=== PATIENT | male | born 1955 | race Caucasian/White ===

== ENCOUNTER 2018-11-19 20:35 | Emergency (ER) | payer OTHER ==
[2018-11-19 20:53] VITALS: BP 127/82; PULSE 85; TEMP 97.3; BMI 31.3
--- NOTE | 2018-11-19 20:59 | PDOC ---
History of Present Illness - History of Present Illness Initial Comments: 11/19/18 20:58 The patient is a 59 year old male with a significant past medical history of CAD (VT 1yr ago w/3 stents placed on Brilinta and baby aspirin), HTN, hyperthyroidism, hypercholesterolemia, diabetes, anxiety, and depression who presents to the ED from home c/o substernal CP x1hr. Pt was aggravated/pissed off today. 1hr ago he was standing and angry when he had gradual onset pressure/ heaviness in the middle of his chest, nonradiating, improving with time. Pt states it's the exact same sx as his previous VT except he had SOB last time. Denies SOB, N/V, diaphoresis, PEREZ, dizziness, F/C, abdominal pain, weakness. Endorses intermittent b/l hand numbness/tingling x3mo, none now. Denies travel, recent surgeries, immobilization. <Miryam Ashby - Last Filed: 11/19/18 21:15> <Berenice Zuniga I - Last Filed: 11/19/18 22:15> - General Chief Complaint: Pain Stated Complaint: SUBSTERNAL CHEST PAIN Time Seen by Provider: 11/19/18 20:52 Past History - Past Medical History COPD: No Diabetes: Yes (TYPE II) HTN: Yes Hypercholesterolemia: Yes Thyroid Disease: Yes - Surgical History Cholecystectomy: Yes - Suicide/Smoking/Psychosocial Hx Smoking History: Former smoker Have you smoked in the past 12 months: No Number of Cigarettes Smoked Daily: 0 If you are a former smoker, when did you quit?: 11/2017 Information on smoking cessation initiated: No 'Breaking Loose' booklet given: 09/04/13 Hx Alcohol Use: No Drug/Substance Use Hx: No Substance Use Type: Marijuana <Miryam Ashby - Last Filed: 11/19/18 21:15> <Berenice Zuniga I - Last Filed: 11/19/18 22:15> - Past Medical History Allergies/Adverse Reactions: Allergies Allergy/AdvReac Type Severity Reaction Status Date / Time No Known Allergies Allergy Verified 11/19/18 20:37 Home Medications: Ambulatory Orders Aspirin [ASA -] 81 mg PO DAILY 11/19/18 Empagliflozin [Jardiance] 10 mg PO DAILY 11/19/18 Fenofibrate Nanocrystallized [Fenofibrate] 160 mg PO DAILY 11/19/18 Levothyroxine [Synthroid -] 75 mcg PO DAILY 11/19/18 Losartan Potassium 25 mg PO DAILY 11/19/18 Metformin HCl [Glucophage] 1,000 mg PO BID 11/19/18 Rosuvastatin Calcium [Crestor] 40 mg PO DAILY 11/19/18 Ticagrelor [Brilinta] 90 mg PO BID 11/19/18 Review of Systems - Review of Systems Comments:: 11/19/18 21:23 Constitutional: Negative for chills, fever, fatigue. HENT: Negative for sore throat, rhinorrhea, congestion. Eyes: Negative for visual disturbance. Respiratory: Negative for shortness of breath, cough, and wheezing. Cardiovascular: Positive for chest pain. Negative for palpitations, and leg swelling. Gastrointestinal: Negative for abdominal pain, blood in stool, constipation, diarrhea, nausea, and vomiting. Genitourinary: Negative for dysuria, flank pain, and hematuria. Musculoskeletal: Positive for back pain (chronic). Negative for myalgias and neck pain. Skin: Negative for rash. Neurological: Positive for b/l hand numbness (intermittent, chronic). Negative for light-headedness, dizziness, syncope, weakness, and headaches. Psychiatric/Behavioral: Negative for behavioral problems and confusion. <Miryam Ashby - Last Filed: 11/19/18 21:15> *Physical Exam - Vital Signs Last Vital Signs Temp Pulse Resp BP Pulse Ox 97.3 F L 85 15 127/82 100 11/19/18 20:38 11/19/18 20:38 11/19/18 20:38 11/19/18 20:38 11/19/18 20:38 - Physical Exam Comments: 11/19/18 21:22 Gen: Alert, NAD, slightly anxious-appearing. HEENT: PERRL, EOMI, MMM, NCAT. No conjunctival pallor. Sclera are non-icteric. Oropharynx is clear. CV: Regular rate and rhythm. No murmurs, rubs, or gallops. PULM: No resp distress. CTAB, no wheezes, rales, or rhonchi. ABD: soft, NT/ND, no rebound tenderness or guarding, no CVA tenderness. BACK: No TTP of c/t/l-spine. No step-offs or deformities. MSK: No bony deformities. 2+ pulses in all extremities. NEURO: AAOx3. PERRL. No gross CN deficits. Strength and sensation grossly intact throughout. EXTREMITIES: No cyanosis. No clubbing. No edema. No calf tenderness. PSYCH: Normal mood and thought pattern. SKIN: Warm and dry. Normal capillary refill. No rashes. No jaundice. <Miryam Ashby - Last Filed: 11/19/18 21:15> - Vital Signs Last Vital Signs Temp Pulse Resp BP Pulse Ox 97.3 F L 85 15 127/82 100 11/19/18 20:38 11/19/18 20:38 11/19/18 20:38 11/19/18 20:38 11/19/18 20:38 <Berenice Zuniga I - Last Filed: 11/19/18 22:15> Heart Score/ECG Review - ECG Impressions Comment:: 11/19/18 21:34 NSR, 80bpm, no STEs, +TWIs in III, aVR, V2. No prior EKGs to compare. <Miryam Ashby - Last Filed: 11/19/18 21:15> ED Treatment Course - LABORATORY CBC & Chemistry Diagram: 11/19/18 20:55 11/19/18 20:55 <Miryam Ashby - Last Filed: 11/19/18 21:15> - LABORATORY CBC & Chemistry Diagram: 11/19/18 20:55 11/19/18 20:55 - ADDITIONAL ORDERS Additional order review: Laboratory Results 11/19/18 11/19/18 11/19/18 21:25 20:55 20:55 PT with INR 14.6 H INR 1.31 H Sodium 140 Potassium 3.9 Chloride 106 Carbon Dioxide 25 Anion Gap 9 BUN 20.0 H Creatinine 1.1 Est GFR (CKD-EPI)AfAm 82.37 Est GFR (CKD-EPI)NonAf 71.07 Random Glucose 118 H Calcium 9.5 Total Bilirubin 1.3 H AST 24 ALT 23 Alkaline Phosphatase 36 L Creatine Kinase 95 Troponin I < 0.03 Total Protein 7.2 Albumin 4.3 11/19/18 20:55 RBC 5.07 MCV 88.3 MCHC 33.9 RDW 13.4 MPV 9.3 Neutrophils % 65.3 Lymphocytes % 22.4 D Monocytes % 9.8 Eosinophils % 2.0 Basophils % 0.5 - RADIOLOGY Radiology Studies Ordered: Category Date Time Status CHEST X-RAY PORTABLE* [RAD] Stat Radiology 11/19/18 20:52 Taken <Berenice Zuniga I - Last Filed: 11/19/18 22:15> Medical Decision Making - Medical Decision Making 11/19/18 21:18 The patient is a 59 year old male with a significant past medical history of CAD (VT 1yr ago w/3 stents placed on Brilinta and baby aspirin), HTN, hyperthyroidism, hypercholesterolemia, diabetes, anxiety, and depression who presents to the ED from home with substernal, nonradiating, chest pressure/ heaviness x1hr similar to his previous VT. Hemodynamically stable, no SOB, benign physical exam. High concern for ACS/VT due to significant RFs and similarity of sx to previous VT - get labs, EKG, and admit for ACS r/o. Low concern for PNA or pulmonary etiology of CP due to lack of SOB and lungs CTAB - obtain CXR to r/o. Hemodynamic stability, lack of back pain, and presentation not concerning for dissection. Presentation, lack of RFs, and Wells score 0 not concerning for PE - no further testing indicated. -EKG -Labs: CBC, CMP, Coags, Cardiac profile -CXR -Dispo: admit pending w/u 11/19/18 21:29 EKG reviewed. TWIs in III, aVR, V2 - inferior infarct, age undetermined, possibly due to prior VT. No prior EKGs to compare. 11/19/18 21:30 Labs reviewed. No concerning findings. CXR reviewed: per my read, no acute findings <Miryam Ashby - Last Filed: 11/19/18 21:15> *DC/Admit/Observation/Transfer <Miryam Ashby - Last Filed: 11/19/18 21:15> <Berenice Zuniga I - Last Filed: 11/19/18 22:15> Diagnosis at time of Disposition: Chest pain Qualifiers: Chest pain type: unspecified Qualified Code(s): R07.9 - Chest pain, unspecified - Discharge Dispostion Disposition: AGAINST MEDICAL ADVICE Condition at time of disposition: Stable - Patient Instructions Additional Instructions: Your leaving AGAINST MEDICAL ADVICE. By leaving AGAINST MEDICAL ADVICE U except responsibility for anything that could happen or any adverse outcome including but not limited to a heart attack, passing out, permanent cardiac/heart damage, permanent brain damage and . If at any time E you change your mind please go to the nearest emergency department or return to this emergency department. Return to the emergency department immediately with ANY new, persistent or worsening symptoms. Continue any medications as previously prescribed by your physician. You should follow up with your primary doctor as soon as possible regarding today's emergency department visit. . Please make sure your doctor reviews the results of your emergency evaluation. Thank you for coming to the Emergency Department today for your care. It was a pleasure to see you today. Please note that your evaluation is INCOMPLETE until you follow-up with your doctor.
[2018-11-19 21:20] LABS: BASO % 0.5 % (0-2.0); HEMATOCRIT 44.8 % (35.4-49); HEMOGLOBIN 15.2 GM/dl (11.7-16.9); LYMPH % 22.4 % (8-40); MCHC 33.9 g/dl (32.0-35.9); MEAN CELL VOLUME 88.3 fl (80-96); MEAN PLT VOLUME 9.3 fl (7.5-11.1); MONO % 9.8 % (3.8-10.2); NEUT % 65.3 % (42.8-82.8); PLATELET COUNT 205 K/MM3 (134-434); RBC 5.07 M/mm3 (4.00-5.60); RDW 13.4 % (11.9-15.9); WHITE BLOOD COUNT 7.5 K/mm3 (4.0-10.8)
[2018-11-19 21:33] LABS: ALBUMIN 4.3 g/dl (3.4-5.0); BILIRUBIN,TOTAL 1.3 mg/dl (0.2-1); CALCIUM 9.5 mg/dl (8.5-10); CREATININE 1.1 mg/dl (0.55-1.3); POTASSIUM 3.9 mmol/L (3.5-5.1); TOT PROT 7.2 g/dl (6.4-8.2)
--- NOTE | 2018-11-19 21:49 | PDOC ---
Documentation entered by Marilee Gil SCRIBE, acting as scribe for Berenice Zuniga MD. Berenice Zuniga MD: This documentation has been prepared by the Louise adan Xhesika, SCRIBE, under my direction and personally reviewed by me in its entirety. I confirm that the documentation accurately reflects all work, treatment, procedures, and medical decision making performed by me. Attending Attestation - Resident Resident Name: Miryam Ashby - ED Attending Attestation I have performed the following: I have examined & evaluated the patient, The case was reviewed & discussed with the resident, I agree w/resident's findings & plan, Exceptions are as noted - HPI HPI: 11/19/18 21:54 The patient is a 62 year old male, with a significant PMH of CAD (MO 1yr ago w/ 3 stents placed, on Brilinta and baby aspirin), HTN, hyperthyroidism, hypercholesterolemia, diabetes, anxiety, and depression who presents to the emergency department with 1 hour of chest pain. The patient describes the pain as substernal, heavy pressure, non radiating pain, progressively getting better. The patient notes he was aggravated and angry today at the sudden onset of his symptoms. The patient notes these were the same symptoms he endorsed with his previous heart attack, however, he denies experiencing SOB this time. PAST SURGICAL HISTORY: no significant history FAMILY HISTORY: no pertinent history SOCIAL HISTORY: Pt lives with family and is employed. MEDICATIONS: reviewed ALLERGIES: As per nursing notes - Physicial Exam PE: 11/19/18 21:54 General: Well-nourished well-developed individual, no acute distress HEENT: Throat: Normal, tonsils normal, no erythema or exudate Neck: Supple, no meningeal signs, no lymphadenopathy Eyes::Pupils equal reactive and round, extraocular motion intact Chest: Nontender to palpation Cardiac: S1-S2 normal, regular rate and rhythm, no murmurs rubs or gallops Respiratory: Lungs clear to auscultation bilateral Abdomen: Soft, nondistended, normal bowel sounds, nontender to palpation diffusely Extremities: Warm, dry, no cyanosis, clubbing, or edema Skin: No rashes Neuro: Alert and oriented x3, nonfocal exam, grossly intact, normal gait Psych: Normal mood and affect - Medical Decision Making 11/19/18 22:18 This is a 62-year-old male with multiple cardiac risk factors including an MO approximately year ago who came in with chest pain similar to his chest pain with his MO. Patient was seen by the resident and a workup was initiated including labs EKG and chest x-ray EKG was negative for any acute ST-T wave changes but did indicate an old inferior wall MO. Patient's cardiac enzymes were normal and his troponin was not measurable. Patient's heart score was elevated and the he was advised that he needed an admission for chest pain rule out ACS. Patient refused admission. Risk of not being admitted to was explained to patient including heart attack, + out, permanent cardiac damage, permanent disability and patient understood his risks and left after signing out against AMA.
[2018-11-19 22:09] LABS: INR 1.31 (0.82-1.09); PROTHROMBIN TIME (PATIENT) 14.6 SEC (10.2-13.0)
--- NOTE | 2018-11-20 09:31 | EKG ---
Test Reason : Blood Pressure : / mmHG Vent. Rate : 080 BPM Atrial Rate : 080 BPM P-R Int : 150 ms QRS Dur : 088 ms QT Int : 378 ms P-R-T Axes : 018 -28 014 degrees QTc Int : 435 ms NORMAL SINUS RHYTHM POSSIBLE LEFT ATRIAL ENLARGEMENT INFERIOR INFARCT , AGE UNDETERMINED ABNORMAL ECG WHEN COMPARED WITH ECG OF 28-JAN-2008 22:32, QRS AXIS SHIFTED LEFT MINIMAL CRITERIA FOR ANTERIOR INFARCT ARE NO LONGER PRESENT INFERIOR INFARCT IS NOW PRESENT Confirmed by Clint Martins MD ([id number]) on 11/20/2018 9:31:26 AM Referred By: Confirmed By:Clint Martins MD
== END 2018-11-19 22:20 | disposition left against medical advice (07) ==
LOC: FER 20:35
DX: R07.9 Chest pain, unspecified (principal); I25.2 Old myocardial infarction; I25.10 Atherosclerotic heart disease of native coronary artery without angina pectoris; I10 Essential (primary) hypertension; E07.9 Disorder of thyroid, unspecified; E78.00 Pure hypercholesterolemia, unspecified; E11.9 Type 2 diabetes mellitus without complications; F41.8 Other specified anxiety disorders
CPT/HCPCS: 36415; 71045-TC-FY; 80053; 82550; 84484; 85025; 85610; 85730; 93005; 99282-25

== ENCOUNTER 2019-02-09 10:53 | Emergency (ER) | payer OTHER ==
[2019-02-09] MEDS ORDERED: ASPIRIN 81 MG CHEWABLE TABLETS PO ONE (11:07)
[2019-02-09] MEDS ORDERED: ASPIRIN 81 MG CHEWABLE TABLETS ONE (11:10)
[2019-02-09 11:15] VITALS: TEMP 98; BMI 32.5
[2019-02-09 11:33] LABS: BASO % 0.7 % (0-2.0); EOS % 5.2 % (0-4.5); HEMATOCRIT 43.2 % (35.4-49); HEMOGLOBIN 14.3 GM/dl (11.7-16.9); LYMPH % 22.1 % (8-40); MCH 29.4 pg (25.7-33.7); MCHC 33.2 g/dl (32.0-35.9); MEAN CELL VOLUME 88.4 fl (80-96); MEAN PLT VOLUME 8.8 fl (7.5-11.1); MONO % 10.2 % (3.8-10.2); NEUT % 61.8 % (42.8-82.8); PLATELET COUNT 158 K/MM3 (134-434); RBC 4.88 M/mm3 (4.00-5.60); WHITE BLOOD COUNT 5.6 K/mm3 (4.0-10.8)
[2019-02-09 11:45] LABS: INR 1.17 (0.82-1.09); PROTHROMBIN TIME (PATIENT) 13.1 SEC (10.2-13.0)
[2019-02-09 11:46] LABS: ALBUMIN 4.1 g/dl (3.4-5.0); BILIRUBIN,TOTAL 0.3 mg/dl (0.2-1); CALCIUM 9.2 mg/dl (8.5-10); POTASSIUM 3.7 mmol/L (3.5-5.1); TOT PROT 6.5 g/dl (6.4-8.2)
--- NOTE | 2019-02-09 12:17 | PDOC ---
History of Present Illness - General Chief Complaint: Chest Pain Stated Complaint: CHEST PAIN Time Seen by Provider: 02/09/19 10:55 History Source: Patient, Primary Care Provider Exam Limitations: No Limitations - History of Present Illness Initial Comments: 02/09/19 12:12 CHIEF COMPLAINT: Diffuse substernal chest pain for 2 hours this morning HISTORY OF PRESENT ILLNESS: 63-year-old man with a history of coronary artery disease, stents x3, myocardial infarction, ejection fraction of 40%, hypertension, hyperlipidemia, and diabetes mellitus. Patient was feeling well until this morning when he became aggravated over a situation. He developed substernal chest pain diffusely throughout the chest. He states it felt like a pressure or a discomfort, more than like a pain. The symptoms continued for about 2 hours and have now resolved. Given his upset, he took his Xanax 0.5 mg which seemed to help. He also took his usual aspirin this morning. There was no shortness of breath, no nausea, no vomiting, and no diaphoresis. There were no palpitations and no syncope or lightheadedness. Currently he is feeling well. REVIEW OF SYSTEMS: GENERAL/CONSTITUTIONAL: No fever or chills. No weakness. No weight change. HEAD, EYES, EARS, NOSE AND THROAT: No change in vision. No ear pain or discharge. No sore throat. CARDIOVASCULAR: Positive chest pain. No shortness of breath. RESPIRATORY: No cough, wheezing, or hemoptysis. GASTROINTESTINAL: No nausea, vomiting, diarrhea or constipation. No rectal bleeding. GENITOURINARY: No dysuria, frequency, or change in urination. MUSCULOSKELETAL: No joint or muscle swelling or pain. No neck or back pain. SKIN AND BREASTS: No rash or easy bruising. NEUROLOGIC: No headache, vertigo, loss of consciousness, or loss of sensation. PSYCHIATRIC: No depression. Positive history of anxiety. ENDOCRINE: No increased thirst. No abnormal weight change. HEMATOLOGIC/LYMPHATIC: No anemia, easy bleeding, or history of blood clots. ALLERGIC/IMMUNOLOGIC: No hives or skin allergy. No latex allergy. Past History - Past Medical History Allergies/Adverse Reactions: Allergies Allergy/AdvReac Type Severity Reaction Status Date / Time No Known Allergies Allergy Verified 02/09/19 11:00 Home Medications: Ambulatory Orders Aspirin [ASA -] 81 mg PO DAILY 11/19/18 Fenofibrate Nanocrystallized [Fenofibrate] 160 mg PO DAILY 11/19/18 Levothyroxine [Synthroid -] 75 mcg PO DAILY 11/19/18 Losartan Potassium 25 mg PO DAILY 11/19/18 Metformin HCl [Glucophage] 500 mg PO BID 11/19/18 Rosuvastatin Calcium [Crestor] 20 mg PO DAILY 11/19/18 Ticagrelor [Brilinta] 90 mg PO BID 11/19/18 Alprazolam [Xanax] 0.5 mg PO PRN PRN 02/09/19 Duloxetine HCl [Cymbalta] 60 mg PO DAILY 02/09/19 Hydrocodone/Acetaminophen [Hydrocodon-Acetaminoph 7.5-325] 1 each PO PRN PRN traZODone HCL [Trazodone HCl] 50 mg PO DAILY 02/09/19 Cardiac Disorders: Yes (Coronary stents x3) Hx Myocardial Infarction: Yes (Ejection fraction 40% on last echo) COPD: No Diabetes: Yes (TYPE II) HTN: Yes Hypercholesterolemia: Yes Psychiatric Problems: Yes (anxiety,depression) Thyroid Disease: Yes - Surgical History Cardiac Surgery: Yes (stents x 3 in 2018) Cholecystectomy: Yes - Psycho Social/Smoking Cessation Hx Smoking History: Former smoker Have you smoked in the past 12 months: No Number of Cigarettes Smoked Daily: 0 If you are a former smoker, when did you quit?: 11/2017 Information on smoking cessation initiated: No 'Breaking Loose' booklet given: 09/04/13 Hx Alcohol Use: No Drug/Substance Use Hx: No Substance Use Type: Marijuana *Physical Exam - Vital Signs Last Vital Signs Temp Pulse Resp BP Pulse Ox 98 F 71 17 138/84 98 02/09/19 10:54 02/09/19 11:56 02/09/19 11:56 02/09/19 11:56 02/09/19 11:56 - Physical Exam Comments: 02/09/19 12:15 GENERAL: The patient is awake, alert, and fully oriented, in no acute distress. He appears comfortable and appears well. HEAD: Normal with no signs of trauma. EYES: Pupils equal, round and reactive to light, extraocular movements intact, sclera anicteric, conjunctiva clear. ENT: Ears normal, nares patent, oropharynx clear without exudates. Moist mucous membranes. NECK: Normal range of motion, supple without lymphadenopathy, JVD, or masses. LUNGS: Breath sounds equal, clear to auscultation bilaterally. No wheezes, and no crackles. HEART: Regular rate and rhythm, normal S1 and S2 without murmur, rub or gallop. ABDOMEN: Soft, nontender, normoactive bowel sounds. No guarding, no rebound. No masses. EXTREMITIES: Normal range of motion, no edema. No clubbing or cyanosis. No cords, erythema, or tenderness. NEUROLOGICAL: Cranial nerves II through XII grossly intact. Normal speech, normal gait. Motor strength normal. Sensation normal. PSYCH: Normal mood, normal affect. SKIN: Warm, Dry, normal turgor, no rashes or lesions noted. Heart Score/ECG Review - History History: Moderately suspicious - Electrocardiogram EKG: Normal - Age Age: 45-65 - Risk Factors Risk Factors Heart Score: Yes Hx Hypercholesterolemia, Yes Hx Hypertension, Yes Hx Diabetes Based on the list above the patient has:: >/=3 risk factors or Hx atherosclerotic disease - Troponin Troponin: </= normal limit - Score Heart Score - Total: 4 - ECG Impressions Comment:: 02/09/19 12:16 Twelve-lead EKG shows sinus rhythm at a rate of 75 bpm with trigeminy. The axis is normal. The intervals are normal. There are Q waves in the inferior leads, unchanged from prior EKG of November 19, 2018. There are no acute ST elevations or depressions. Impression: Sinus rhythm with trigeminy, old inferior wall ME unchanged from prior EKG. 02/09/19 13:46 Repeat EKG shows normal sinus rhythm at a rate of 65. The previously seen immature ventricular contractions are no longer present. The axis is normal. The intervals are normal. There are old inferior Q waves. There are no acute ST elevations or depressions. T waves are normal. Impression: Normal sinus rhythm at 65 bpm. Old inferior infarct, unchanged from prior EKGs. Previously seen premature ventricular contractions are no longer present. No acute changes. ED Treatment Course - LABORATORY CBC & Chemistry Diagram: 02/09/19 11:15 02/09/19 11:15 - ADDITIONAL ORDERS Additional order review: Laboratory Results 02/09/19 02/09/19 02/09/19 11:15 11:15 11:15 PT with INR 13.1 H INR 1.17 PTT (Actin FS) Sodium 130 L Potassium 3.7 Chloride 105 Carbon Dioxide 25 Anion Gap 0 L BUN 22.0 H Creatinine 1.0 Est GFR (CKD-EPI)AfAm 91.78 Est GFR (CKD-EPI)NonAf 79.19 Random Glucose 162 H Calcium 9.2 Total Bilirubin 0.3 AST 16 ALT 14 Alkaline Phosphatase 53 Creatine Kinase 70 Troponin I < 0.03 Total Protein 6.5 Albumin 4.1 02/09/19 11:15 PT with INR INR PTT (Actin FS) 31.2 Sodium Potassium Chloride Carbon Dioxide Anion Gap BUN Creatinine Est GFR (CKD-EPI)AfAm Est GFR (CKD-EPI)NonAf Random Glucose Calcium Total Bilirubin AST ALT Alkaline Phosphatase Creatine Kinase Troponin I Total Protein Albumin 02/09/19 11:15 RBC 4.88 MCV 88.4 MCHC 33.2 RDW 12.0 D MPV 8.8 Neutrophils % 61.8 Lymphocytes % 22.1 Monocytes % 10.2 Eosinophils % 5.2 H D Basophils % 0.7 - RADIOLOGY Radiology Studies Ordered: Category Date Time Status CHEST X-RAY PORTABLE* [RAD] Stat Radiology 02/09/19 11:07 Completed - Medications Given in the ED: ED Medications Discontinued Medications Generic Name Dose Route Start Last Admin Trade Name Freq PRN Reason Stop Dose Admin Aspirin 324 mg 02/09/19 11:07 02/09/19 11:10 Asa - PO 02/09/19 11:08 324 mg ONCE ONE Administration Medical Decision Making - Medical Decision Making 02/09/19 14:06 63-year-old man with a history of coronary disease, stents, prior ME, EF of 40% . Patient came in with chest pain after an upsetting episode this morning, lasting for 2 hours. Twelve-lead EKG initially showed trigeminy, but no acute ischemic changes. There was an old inferior wall ME which has been seen on prior EKGs. The patient's chest pain resolved upon arrival to the emergency department. Work-up with chest x-ray, labs, EKG all negative. Initial troponin negative. Repeat troponin also negative. Patient with a heart risk score in the moderate range, discussed with patient and his primary physician, Dr. Prem Johnson. Shared decision making process followed. Patient is refusing admission. Dr. Woods has arranged follow-up with cardiology in 48 hours. Patient states he is feeling well and he understands the risks and benefits of admission versus close outpatient follow-up. He has decided to follow-up as an outpatient and promises to return immediately if he develops any further symptoms. Impression: Chest pain, possibly cardiac in etiology. Patient advised of options based on shared decision making and has decided not to be admitted. Plan: Patient to continue aspirin and other medications, has appointment to follow-up in 48 hours with cardiology. Patient to return to the ED immediately for any recurrence of symptoms. Vital Signs (72 hours) 02/09/19 02/09/19 02/09/19 10:54 11:56 12:11 Temperature 98 F Pulse Rate 74 Pulse Rate [ 71 64 Apical] Respiratory 19 17 16 Rate Blood Pressure 132/82 Blood Pressure 138/84 118/80 [Arm] O2 Sat by Pulse 100 98 100 Oximetry (%) 02/09/19 13:43 Temperature Pulse Rate Pulse Rate [ 70 Apical] Respiratory 17 Rate Blood Pressure Blood Pressure 117/70 [Arm] O2 Sat by Pulse 97 Oximetry (%) Laboratory Results - last 24 hr 02/09/19 02/09/19 02/09/19 11:15 11:15 11:15 WBC RBC Hgb Hct MCV MCH MCHC RDW Plt Count MPV Absolute Neuts (auto) Neutrophils % Lymphocytes % Monocytes % Eosinophils % Basophils % PT with INR INR PTT (Actin FS) 31.2 Sodium 130 L Potassium 3.7 Chloride 105 Carbon Dioxide 25 Anion Gap 0 L BUN 22.0 H Creatinine 1.0 Est GFR (CKD-EPI)AfAm 91.78 Est GFR (CKD-EPI)NonAf 79.19 Random Glucose 162 H Calcium 9.2 Total Bilirubin 0.3 AST 16 ALT 14 Alkaline Phosphatase 53 Creatine Kinase 70 Troponin I < 0.03 Total Protein 6.5 Albumin 4.1 02/09/19 02/09/19 02/09/19 11:15 11:15 13:20 WBC 5.6 RBC 4.88 Hgb 14.3 Hct 43.2 MCV 88.4 MCH 29.4 MCHC 33.2 RDW 12.0 D Plt Count 158 D MPV 8.8 Absolute Neuts (auto) 3.5 Neutrophils % 61.8 Lymphocytes % 22.1 Monocytes % 10.2 Eosinophils % 5.2 H D Basophils % 0.7 PT with INR 13.1 H INR 1.17 PTT (Actin FS) Sodium Potassium Chloride Carbon Dioxide Anion Gap BUN Creatinine Est GFR (CKD-EPI)AfAm Est GFR (CKD-EPI)NonAf Random Glucose Calcium Total Bilirubin AST ALT Alkaline Phosphatase Creatine Kinase Troponin I < 0.03 Total Protein Albumin Discharge - Discharge Information Problems reviewed: Yes Clinical Impression/Diagnosis: Chest pain Qualifiers: Chest pain type: unspecified Qualified Code(s): R07.9 - Chest pain, unspecified Condition: Guarded Disposition: HOME - Admission No - Follow up/Referral Referrals: Prem Johnson MD [Primary Care Provider] - - Patient Discharge Instructions Patient Printed Discharge Instructions: DI for Chest Pain Additional Instructions: Today you were evaluated for chest pain. The EKGs do not show a heart attack. The heart enzymes were normal x2. The exact cause of the chest pain remains uncertain and may still be from the heart. 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 You are also advised to return immediately to the emergency department for any recurrence of chest pain or other symptoms such as shortness of breath, weakness, sweating, palpitations, or other serious symptoms. Continue to take your medications as prescribed, including aspirin. - Post Discharge Activity
[2019-02-09 13:44] VITALS: BP 117/70; PULSE 70
--- NOTE | 2019-02-09 20:11 | EKG ---
Test Reason : Blood Pressure : / mmHG Vent. Rate : 065 BPM Atrial Rate : 065 BPM P-R Int : 158 ms QRS Dur : 090 ms QT Int : 412 ms P-R-T Axes : 039 -13 040 degrees QTc Int : 428 ms NORMAL SINUS RHYTHM INFERIOR INFARCT (CITED ON OR BEFORE 19-NOV-2018) ABNORMAL ECG WHEN COMPARED WITH ECG OF 09-FEB-2019 11:03, PREMATURE VENTRICULAR COMPLEXES ARE NO LONGER PRESENT Confirmed by MD ALBIN, ADY ([id number]) on 02/09/2019 8:11:36 PM Referred By: ANN ADRIAN Confirmed By:ADY TALAMANTES MD
--- NOTE | 2019-02-09 20:12 | EKG ---
Test Reason : Blood Pressure : / mmHG Vent. Rate : 075 BPM Atrial Rate : 075 BPM P-R Int : 156 ms QRS Dur : 086 ms QT Int : 390 ms P-R-T Axes : 043 -25 047 degrees QTc Int : 435 ms SINUS RHYTHM WITH FREQUENT PREMATURE VENTRICULAR COMPLEXES INFERIOR INFARCT (CITED ON OR BEFORE 19-NOV-2018) ABNORMAL ECG WHEN COMPARED WITH ECG OF 19-NOV-2018 20:40, PREMATURE VENTRICULAR COMPLEXES ARE NOW PRESENT Confirmed by MD ALBIN, ADY ([id number]) on 02/09/2019 8:11:54 PM Referred By: ANN ADRIAN Confirmed By:ADY TALAMANTES MD
== END 2019-02-09 14:35 | disposition home or self-care (01) ==
LOC: FER 10:53
DX: R07.9 Chest pain, unspecified (principal); I25.10 Atherosclerotic heart disease of native coronary artery without angina pectoris; Z95.5 Presence of coronary angioplasty implant and graft; I25.2 Old myocardial infarction
CPT/HCPCS: 36415; 71045-TC-FY; 80053; 82550; 84484; 85025; 85610; 85730; 93005; 99285-25

== ENCOUNTER 2019-07-14 16:52 | Emergency (ER) | payer OTHER ==
[2019-07-14 17:36] VITALS: TEMP 97.4; BMI 32.5
--- NOTE | 2019-07-14 17:40 | PDOC ---
Documentation entered by Katy Segovia SCRIBE, acting as scribe for Jamaal Mustafa MD. Jamaal Mustafa MD: This documentation has been prepared by the Luca adan Maria, SCRIBE, under my direction and personally reviewed by me in its entirety. I confirm that the documentation accurately reflects all work, treatment, procedures, and medical decision making performed by me. History of Present Illness - General Chief Complaint: Chest Pain Stated Complaint: CHEST PAIN Time Seen by Provider: 07/14/19 16:57 History Source: Patient Exam Limitations: No Limitations - History of Present Illness Initial Comments: 07/14/19 17:30 The patient is a 63 year old male with a significant past medical history of CAD ([place] 1yr ago w/4 stents placed on Brilinta and baby aspirin), HTN, hyperthyroidism, hypercholesterolemia, diabetes, anxiety,diabetes mellitus and depression who presents to the emergency room with midsternal chest pain. As per patient, he was well this morning and became aggravated through a conversation. Patient describes the pain as a fluttering sensation that lasted 3-4 minutes, he reports having a similar sensation before having his 4th stent placed.Patient reports tingling in his arm, but states it is consistent with his diabetes. He also reports taking his baby aspirin this morning and he currently presents feeling well. He denies any recent fevers, chills, headache or dizziness. He denies any recent nausea, vomiting, diarrhea or constipation. He denies any recent palpitations or shortness of breath. He denies any recent dysuria, frequency, urgency or hematuria. Denies any acute onset numbness or tingling. Patient states he was seen by his drug enforcement agent 2 months ago, with no significant findings, and has an upcoming appointment next month. Cardiologists: Dr.Michael Sousa PCP: Prem Johnson Past History - Past Medical History Allergies/Adverse Reactions: Allergies Allergy/AdvReac Type Severity Reaction Status Date / Time No Known Allergies Allergy Verified 07/14/19 17:01 Home Medications: Ambulatory Orders Aspirin [ASA -] 81 mg PO DAILY 11/19/18 Fenofibrate Nanocrystallized [Fenofibrate] 160 mg PO DAILY 11/19/18 Levothyroxine [Synthroid -] 75 mcg PO DAILY 11/19/18 Losartan Potassium 25 mg PO DAILY 11/19/18 Metformin HCl [Glucophage] 500 mg PO BID 11/19/18 Rosuvastatin Calcium [Crestor] 20 mg PO DAILY 11/19/18 Ticagrelor [Brilinta] 90 mg PO BID 11/19/18 Alprazolam [Xanax] 0.5 mg PO PRN PRN 02/09/19 Duloxetine HCl [Cymbalta] 60 mg PO DAILY 02/09/19 Hydrocodone/Acetaminophen [Hydrocodon-Acetaminoph 7.5-325] 1 each PO PRN PRN 02/09/19 traZODone HCL [Trazodone HCl] 50 mg PO HS 02/09/19 Cardiac Disorders: Yes (Coronary stents x3) COPD: No Diabetes: Yes HTN: Yes Hypercholesterolemia: Yes Psychiatric Problems: Yes (anxiety,depression) Thyroid Disease: Yes - Surgical History Cardiac Surgery: Yes (stents x 3 in 2018) Cholecystectomy: Yes - Psycho Social/Smoking Cessation Hx Smoking History: Former smoker Have you smoked in the past 12 months: No Number of Cigarettes Smoked Daily: 0 If you are a former smoker, when did you quit?: 11/2017 'Breaking Loose' booklet given: 09/04/13 Hx Alcohol Use: No Drug/Substance Use Hx: No Substance Use Type: Marijuana Review of Systems - Review of Systems Able to Perform ROS?: Yes Comments:: 07/14/19 17:32 Constitutional - Pt denies Fever, Chills, weakness, HEENT: denies vision changes, sore throat Respiratory: Denies cough, sob, hemoptysis Cardiac:+Chest pain. Denies palpitations, light headedness, leg swelling Abd/GI: denies abd pain, nausea, vomiting, blood per rectum, melena, diarrhea : denies dysuria, frequency, discharge Musculskelatal - denies back pain, joint swelling skin - denies bruising, erythema, rash neurological: denies headache, numbness, focal weakness, tingling, ataxia, weakness hematologic: denies anemia, easy bruising, easy bleeding *Physical Exam - Vital Signs Last Vital Signs Temp Pulse Resp BP Pulse Ox 97.4 F L 96 H 18 137/86 95 07/14/19 16:55 07/14/19 17:41 07/14/19 16:55 07/14/19 16:55 07/14/19 17:41 - Physical Exam 07/14/19 17:32 GENERAL: The patient is awake, alert, and fully oriented, Nontoxic - in no acute distress. LUNGS: Breath sounds equal, clear to auscultation bilaterally. No wheezes, no crackles, no rales. HEART: Regular rate and rhythm, normal S1 and S2 without murmur, rub or gallop. ABDOMEN: Soft, nontender, normoactive bowel sounds. No guarding, no rebound. No masses. EXTREMITIES: Normal range of motion, no edema. No clubbing or cyanosis. No cords, erythema, or tenderness. NEUROLOGICAL: No facial asymmetry, Normal speech, normal gait. PSYCH: Normal mood, normal affect. SKIN: Warm, Dry, normal turgor, no rashes or lesions noted. Heart Score/ECG Review - ECG Impressions Comment:: 07/14/19 18:49 Twelve-lead EKG was performed and reviewed by me. There is normal sinus rhythm with a Rate of 103 Left axis deviation Q waves in the inferior leads, unchanged from prior EKG Abnormal R wave progression ED Treatment Course - LABORATORY CBC & Chemistry Diagram: 07/14/19 17:30 07/14/19 17:30 - ADDITIONAL ORDERS Additional order review: Laboratory Results 07/14/19 07/14/19 07/14/19 17:30 17:30 17:30 PT with INR 13.2 H INR 1.18 Sodium 138 Potassium 3.7 Chloride 101 Carbon Dioxide 24 Anion Gap 13 BUN 13.0 Creatinine 1.0 Est GFR (CKD-EPI)AfAm 91.78 Est GFR (CKD-EPI)NonAf 79.19 Random Glucose 156 H Calcium 9.3 Total Bilirubin 0.4 AST 20 ALT 14 Alkaline Phosphatase 43 L Creatine Kinase 50 Troponin I < 0.03 Total Protein 7.2 Albumin 4.2 07/14/19 17:30 RBC 5.70 H MCV 87.9 MCHC 32.2 RDW 12.9 MPV 9.3 Neutrophils % 64.1 Lymphocytes % 20.3 Monocytes % 9.2 Eosinophils % 5.7 H Basophils % 0.7 - RADIOLOGY Radiology Studies Ordered: Category Date Time Status CHEST PA & LAT [RAD] Stat Radiology 07/14/19 17:03 Completed Medical Decision Making - Medical Decision Making 07/14/19 17:18 63y M hx of CAD (sp 4 stents), presents with brief episode of nonradiating 'fluttering' discomfort in his chest lasting several minutse after having a heated discussion without asosicated sob, diaphoresis, palpitations, n/v, focal numbness/tingling/weakness. pt currently cp free. on exam pt in no distress with urnemarkable exam ddx - possible cp of cardiac etiology, inconsistent with other catstrophic causes of cp including pe/dissection will obtain trop, ekg, cxr will reasses pt took asa this morning 07/14/19 18:32 pt remains cp free and asymptomatic pts cxr, trop and labs reviewed. trop neg x 1 I had an in-depth discussion with the patient, recommended overnight observation for further evaluation and re-stratification of his chest pain, However the patient states that he prefers to go home And cannot stay overnight. He agrees to stay for a repeat troponin, We discussed the limitations of repeat troponin, but pt states he prefers to do this, and if it is elevated he will stay, but if negative, would follow up with dr. Sousa tomorrow. I believe that the patient understands the risks of his decision. We will continue to monitor the patient for the next hour until we repeat his blood work. Discharge - Discharge Information Problems reviewed: Yes Clinical Impression/Diagnosis: Chest pain Qualifiers: Chest pain type: unspecified Qualified Code(s): R07.9 - Chest pain, unspecified - Admission No - Follow up/Referral Referrals: Prem Johnson MD [Primary Care Provider] - Salvatore Sousa [Non Staff, Medical] - - Patient Discharge Instructions Patient Printed Discharge Instructions: DI for Chest Pain Additional Instructions: Return to the emergency department immediately with ANY new, persistent or worsening symptoms including recurrent chest pain, nausea, vomiting, sweating, difficulty breathing or any other concerns. You MUST call and follow up with your Physician'S Aide tomorrow for further evaluation of your symptoms. Results were discussed with you. Please make sure your doctor reviews the results of your emergency evaluation. Your Emergency De partment visit is not complete without a follow up with your doctor. Print Language: NAURUAN - Post Discharge Activity
[2019-07-14 17:57] LABS: BASO % 0.7 % (0-2.0); EOS % 5.7 % (0-4.5); HEMATOCRIT 50.1 % (35.4-49); HEMOGLOBIN 16.1 GM/dl (11.7-16.9); LYMPH % 20.3 % (8-40); MCH 28.3 pg (25.7-33.7); MCHC 32.2 g/dl (32.0-35.9); MEAN CELL VOLUME 87.9 fl (80-96); MEAN PLT VOLUME 9.3 fl (7.5-11.1); MONO % 9.2 % (3.8-10.2); NEUT % 64.1 % (42.8-82.8); PLATELET COUNT 216 K/MM3 (134-434); RDW 12.9 % (11.9-15.9); WHITE BLOOD COUNT 7.7 K/mm3 (4.0-10.8)
[2019-07-14 18:05] LABS: ALBUMIN 4.2 g/dl (3.4-5.0); BILIRUBIN,TOTAL 0.4 mg/dl (0.2-1); CALCIUM 9.3 mg/dl (8.5-10); POTASSIUM 3.7 mmol/L (3.5-5.1); TOT PROT 7.2 g/dl (6.4-8.2)
[2019-07-14 18:15] LABS: INR 1.18 (0.82-1.09); PROTHROMBIN TIME (PATIENT) 13.2 SEC (10.2-13.0)
[2019-07-14 19:35] VITALS: BP 110/75; PULSE 86
--- NOTE | 2019-07-14 20:07 | PDOC ---
*Physical Exam - Vital Signs Last Vital Signs Temp Pulse Resp BP Pulse Ox 97.4 F L 86 16 110/75 99 07/14/19 16:55 07/14/19 19:34 07/14/19 19:34 07/14/19 19:34 07/14/19 19:34 ED Treatment Course - LABORATORY CBC & Chemistry Diagram: 07/14/19 17:30 07/14/19 17:30 - ADDITIONAL ORDERS Additional order review: Laboratory Results 07/14/19 07/14/19 07/14/19 19:30 19:30 17:30 PT with INR INR Sodium Potassium Chloride Carbon Dioxide Anion Gap BUN Creatinine Est GFR (CKD-EPI)AfAm Est GFR (CKD-EPI)NonAf Random Glucose Calcium Total Bilirubin AST ALT Alkaline Phosphatase Creatine Kinase 50 Troponin I < 0.03 < 0.03 Total Protein Albumin 07/14/19 07/14/19 17:30 17:30 PT with INR 13.2 H INR 1.18 Sodium 138 Potassium 3.7 Chloride 101 Carbon Dioxide 24 Anion Gap 13 BUN 13.0 Creatinine 1.0 Est GFR (CKD-EPI)AfAm 91.78 Est GFR (CKD-EPI)NonAf 79.19 Random Glucose 156 H Calcium 9.3 Total Bilirubin 0.4 AST 20 ALT 14 Alkaline Phosphatase 43 L Creatine Kinase 50 Troponin I Total Protein 7.2 Albumin 4.2 07/14/19 17:30 RBC 5.70 H MCV 87.9 MCHC 32.2 RDW 12.9 MPV 9.3 Neutrophils % 64.1 Lymphocytes % 20.3 Monocytes % 9.2 Eosinophils % 5.7 H Basophils % 0.7 Discharge - Discharge Information Problems reviewed: Yes Clinical Impression/Diagnosis: Chest pain Qualifiers: Chest pain type: unspecified Qualified Code(s): R07.9 - Chest pain, unspecified Condition: Stable Disposition: HOME - Follow up/Referral Referrals: Salvatore Sousa [Non Staff, Medical] - Prem Johnson MD [Primary Care Provider] - - Patient Discharge Instructions Patient Printed Discharge Instructions: DI for Chest Pain Additional Instructions: Return to the emergency department immediately with ANY new, persistent or worsening symptoms including recurrent chest pain, nausea, vomiting, sweating, difficulty breathing or any other concerns. You MUST call and follow up with your Labor Delivery Specialist tomorrow for further evaluation of your symptoms. Results were discussed with you. Please make sure your doctor reviews the results of your emergency evaluation. Your Emergency Department visit is not complete without a follow up with your doctor. Print Language: FILIPINO - Post Discharge Activity
--- NOTE | 2019-07-15 10:27 | EKG ---
Test Reason : Blood Pressure : / mmHG Vent. Rate : 103 BPM Atrial Rate : 103 BPM P-R Int : 160 ms QRS Dur : 090 ms QT Int : 354 ms P-R-T Axes : 025 -35 025 degrees QTc Int : 463 ms SINUS TACHYCARDIA LEFT AXIS DEVIATION INFERIOR INFARCT (CITED ON OR BEFORE 19-NOV-2018) POOR R WAVE PROGRESSION ABNORMAL ECG WHEN COMPARED WITH ECG OF 09-FEB-2019 13:38, VENT. RATE HAS INCREASED BY 38 BPM Confirmed by Danielle Brock ([id number]) on 07/15/2019 10:26:45 AM Referred By: TRISTEN Confirmed By:Danielle Brock
== END 2019-07-14 20:18 | disposition home or self-care (01) ==
LOC: FER 16:52
DX: R07.9 Chest pain, unspecified (principal); I25.10 Atherosclerotic heart disease of native coronary artery without angina pectoris; Z95.5 Presence of coronary angioplasty implant and graft; I10 Essential (primary) hypertension; E07.9 Disorder of thyroid, unspecified; E11.9 Type 2 diabetes mellitus without complications; F41.8 Other specified anxiety disorders
CPT/HCPCS: 36415; 71046-TC-FY; 80053; 82550; 84484; 85025; 85610; 93005; 99285-25

== ENCOUNTER 2019-11-21 19:06 | Inpatient (IN) | payer OTHER ==
[2019-11-21 19:15] VITALS: BMI 32.6
--- NOTE | 2019-11-21 19:41 | PDOC ---
History of Present Illness - General Chief Complaint: Injury Stated Complaint: FALL/SENT BY PCP Time Seen by Provider: 11/21/19 19:37 - History of Present Illness Initial Comments: The pt reports 2 falls out of bed this past week. The endorses a posterior/R sided PEREZ that has been intermittent, throbbing, non-radiating, and improves with Tylenol since the time of his fall. Pt was seen by PMD, had outpt CT and was found to have small lacunar infarct. Pt was sent in for further evaluation. He denies vision changes, painful eye movements, changes in sensation/strength, chest pain, SOB, abdominal pain, N/V/C/D, dysuria, hematuria Denies history of stroke or [place] Pt reports being compliant with medications. 11/21/19 21:29 NIH Stroke Scale - Last Known Well Date/Time & Onset Date Last Known Well: 11/20/19 Time Last Known Well: 03:00 - Initial Evaluation Level of consciousness: Alert Ask patient the month and their age: Answers both correctly Ask patient to open & close eyes; make fist and let go: Obeys both correctly Best gaze (horizontal eye movement): Normal Visual field testing: No visual field loss Facial paresis (Show teeth/raise eyebrows/close eyes tight): Normal symmetrical movement Motor Function: Left Arm: Normal Motor Function: Right Arm: Normal (extends arm 90 (or 45) degrees for 10 seconds without drift Motor Function: Left Leg: Normal (extends leg 30 degrees for 5 seconds without drift) Motor Function: Right Leg: Normal (extends leg 30 degrees for 5 seconds without drift) Limb Ataxia: No ataxia Sensory(Use pinprick test arms,legs,trunk,face/side to side): Normal Best language (Describe picture, name items, read sentences): No Aphasia Dysarthria (read several words): Normal articulation Extinction and Inattention: No abnormality - Total Score NIH Stroke Scale Score: 0 Past History - Medical History Allergies/Adverse Reactions: Allergies Allergy/AdvReac Type Severity Reaction Status Date / Time No Known Allergies Allergy Verified 07/14/19 17:01 Home Medications: Ambulatory Orders Aspirin [ASA -] 81 mg PO DAILY 11/19/18 Fenofibrate Nanocrystallized [Fenofibrate] 160 mg PO DAILY 11/19/18 Levothyroxine [Synthroid -] 75 mcg PO DAILY 11/19/18 Losartan Potassium 25 mg PO DAILY 11/19/18 Metformin HCl [Glucophage] 500 mg PO BID 11/19/18 Rosuvastatin Calcium [Crestor] 20 mg PO DAILY 11/19/18 Ticagrelor [Brilinta] 90 mg PO BID 11/19/18 Alprazolam [Xanax] 0.5 mg PO PRN PRN 02/09/19 Duloxetine HCl [Cymbalta] 60 mg PO DAILY 02/09/19 Hydrocodone/Acetaminophen [Hydrocodon-Acetaminoph 7.5-325] 1 each PO PRN PRN 02/09/19 traZODone HCL [Trazodone HCl] 50 mg PO HS 02/09/19 Cardiac Disorders: Yes (Coronary stents x3) COPD: No Diabetes: Yes HTN: Yes Hypercholesterolemia: Yes Psychiatric Problems: Yes (anxiety,depression) Thyroid Disease: Yes - Surgical History Cardiac Surgery: Yes (stents x 3 in 2018) Cholecystectomy: Yes - Psycho-Social/Smoking History Smoking History: Never smoked Have you smoked in the past 12 months: No Number of Cigarettes Smoked Daily: 0 If you are a former smoker, when did you quit?: 11/2017 'Breaking Loose' booklet given: 09/04/13 - Substance Abuse Hx (Audit-C & DAST Scrn) How often the patient has a drink containing alcohol: Never Score: In Men: 4 or > Positive; In Women: 3 or > Positive: 0 Screen Result (Pos requires Nsg. Audit-10AR): Negative In the last yr the pt used illegal drug/Rx for NonMed reason: No Score: Yes response is considered Positive: 0 Screen Result (Positive result requires Nsg. DAST-10): Negative Review of Systems - Review of Systems Able to Perform ROS?: Yes Comments:: GENERAL/CONSTITUTIONAL: No fever or chills. No weakness HEAD, EYES, EARS, NOSE AND THROAT: No change in vision. No change in hearing. No sore throat CARDIOVASCULAR: No chest pain or shortness of breath RESPIRATORY: Denies cough, hemoptysis GASTROINTESTINAL: No nausea, vomiting, diarrhea or constipation GENITOURINARY: No dysuria, frequency, or change in urination MUSCULOSKELETAL: No joint or muscle swelling or pain. No neck or back pain SKIN: No rash NEUROLOGIC: No vertigo, loss of consciousness, or change in strength/sensation ENDOCRINE: No increased thirst. No abnormal weight change HEMATOLOGIC/LYMPHATIC: No anemia, easy bleeding, or history of blood clots ALLERGIC/IMMUNOLOGIC: No hives or skin allergy 11/21/19 19:40 Is the patient limited Greenlandic proficient: No *Physical Exam - Vital Signs Last Vital Signs Temp Pulse Resp BP Pulse Ox 97.6 F 100 H 19 113/71 97 11/21/19 19:12 11/21/19 19:12 11/21/19 19:12 11/21/19 19:12 11/21/19 19:12 - Physical Exam GENERAL: Awake, alert, and oriented to person/place/time, in no acute distress HEAD: R infra-orbital ecchymosis w/o underlying bony crepitus EYES: PERRLA, EOMI, sclera anicteric, conjunctiva clear ENT: Hearing grossly normal, nares patent, oropharynx clear without exudates. No uvular deviation. Moist mucosa LUNGS: No distress, speaks in full sentences, clear to auscultation bilaterally HEART: Regular rate and rhythm, normal S1 and S2, no murmurs appreciated, peripheral pulses normal and equal bilaterally ABDOMEN: Soft, nontender, normoactive bowel sounds. No guarding, no rebound. No masses EXTREMITIES: Normal inspection, Normal range of motion, no edema. No clubbing or cyanosis NEUROLOGICAL: Cranial nerves II through XII grossly intact. Normal speech, normal gait, no focal sensorimotor deficits SKIN: Warm, Dry 11/21/19 19:41 ED Treatment Course - LABORATORY CBC & Chemistry Diagram: 11/21/19 20:30 11/21/19 20:30 Medical Decision Making - Medical Decision Making The pt is a 63M w/ a history of HTN who presents from his MD's office for eval uation of a lacunar infarct that was found on outpt CT. Pt denies any changes in vision, strength, or sensation ED Course CMP, CBC, Trop, Lipids ECG CT head ASA and Atorvastatin given ECG w/ sinus rhythm; HR 94; QTc 467; R axis deviation; several PVCs noted, no acute ischemic changes; abn ECG No leukocytosis No anemia Lytes overall unremarkable LFTs overall unremarkable UA w/o evidence of UTI Case discussed w/ Dr. Petersen, will admit to stroke floor Pt signed out to Dr. Bird 07/30/20 21:29 Discharge - Discharge Information Problems reviewed: Yes Clinical Impression/Diagnosis: Stroke Qualifiers: CVA mechanism: unspecified Qualified Code(s): I63.9 - Cerebral infarction, unspecified Condition: Good - Admission Yes - Follow up/Referral - Patient Discharge Instructions - Post Discharge Activity
--- NOTE | 2019-11-21 20:03 | PDOC ---
Attending Attestation - Resident Resident Name: KishaBakari gifford - ED Attending Attestation I have performed the following: I have examined & evaluated the patient, The case was reviewed & discussed with the resident, I agree w/resident's findings & plan, Exceptions are as noted - HPI HPI: 11/22/19 01:13 See resident HPI - Physicial Exam PE: 11/22/19 01:13 Agree with documented exam - Medical Decision Making 11/22/19 01:13 Sent in after OP CT showed acute lacunar infarct f/u labs, repeat CT Neuro consult/eval dispo per neuro admit to stroke Discharge - Discharge Information Problems reviewed: Yes Clinical Impression/Diagnosis: Stroke Qualifiers: CVA mechanism: unspecified Qualified Code(s): I63.9 - Cerebral infarction, unspecified Condition: Good Disposition: HOME - Follow up/Referral - Patient Discharge Instructions - Post Discharge Activity
[2019-11-21] MEDS: SODIUM CHLORIDE 1,000 ML IV SCH (20:32)
[2019-11-21 20:54] LABS: BASO % 0.3 % (0-2.0); EOS % 3.9 % (0-4.5); HEMATOCRIT 43.2 % (35.4-49); HEMOGLOBIN 14.5 GM/dL (11.7-16.9); LYMPH % 15.6 % (8-40); MCH 29.3 pg (25.7-33.7); MCHC 33.5 g/dl (32.0-35.9); MEAN CELL VOLUME 87.6 fl (80-96); MEAN PLT VOLUME 9.3 fl (7.5-11.1); MONO % 8.6 % (3.8-10.2); NEUT % 71.6 % (42.8-82.8); PLATELET COUNT 158 K/MM3 (134-434); RBC 4.93 M/mm3 (4.00-5.60); RDW 14.4 % (11.9-15.9); WHITE BLOOD COUNT 9.6 K/mm3 (4.0-10.0)
[2019-11-21 21:03] LABS: INR 1.16 (0.83-1.09); PROTHROMBIN TIME (PATIENT) 13.7 SEC (9.7-13.0)
[2019-11-21 21:05] LABS: ACTIVATED PTT 33.8 SECONDS (25.2-36.5)
[2019-11-21] MEDS ORDERED: ATORVASTATIN CA 80 MG TABLET (FP) PO ONE (21:19)
[2019-11-21] MEDS ORDERED: ASPIRIN 81 MG CHEWABLE TABLETS PO ONE (21:20)
[2019-11-21] MEDS ORDERED: ACETAMINOPHEN 325 MG TABLET (FP) PO ONE (21:27)
[2019-11-21] MEDS ORDERED: ATORVASTATIN CA 80 MG TABLET (FP) ONE (21:37)
[2019-11-21] MEDS ORDERED: ACETAMINOPHEN 325 MG TABLET (FP) ONE (21:37)
[2019-11-21] MEDS ORDERED: ASPIRIN 81 MG CHEWABLE TABLETS ONE (21:37)
[2019-11-21 21:59] LABS: ALBUMIN 3.8 g/dl (3.4-5.0); ALK PHOS 53 U/L (45-117); ANION GAP 9 MMOL/L (8-16); BILIRUBIN,TOTAL 0.4 mg/dL (0.2-1); BLOOD UREA NITROGEN 18.2 mg/dL (7-18); CALCIUM 8.9 mg/dL (8.5-10.1); CHLORIDE 108 mmol/L (98-107); CHOLESTEROL 107 mg/dL (50-200); CO2 24 mmol/L (21-32); CREATININE 1.2 mg/dL (0.55-1.3); GLUCOSE,RANDOM 185 mg/dL (74-106); HDL CHOLESTEROL 40 mg/dL (40-60); LDL CHOLESTEROL (ONLY SJRH) 45 mg/dL (5-100); POTASSIUM 4.1 mmol/L (3.5-5.1); SGOT/AST 10 U/L (15-37); SGPT/ALT 12 U/L (13-61); SODIUM 141 mmol/L (136-145); TRIGLYCERIDES 226 mg/dL (0-150)
--- NOTE | 2019-11-21 23:46 | CON.NEURO ---
Consult Consult Specialty:: [facility] Reason for Consultation:: abnormal head Ct - History of Present Illness History of Present Illness: 63-year-old right-handed man with history of high blood pressure and difficulty with balance was afraid to the emergency room due to abnormal CAT scan of the head Apparetntly patient was having diff walking for few days Went to his pCP who did Head Ct which showed lacunar stroke No results availabe - Alcohol/Substance Use Hx Alcohol Use: No - Smoking History Smoking history: Never smoked Have you smoked in the past 12 months: No Aproximately how many cigarettes per day: 0 If you are a former smoker, when did you quit?: 11/2017 Home Medications - Allergies Allergies/Adverse Reactions: Allergies Allergy/AdvReac Type Severity Reaction Status Date / Time No Known Allergies Allergy Verified 07/14/19 17:01 - Home Medications Home Medications: Ambulatory Orders Aspirin [ASA -] 81 mg PO DAILY 11/19/18 Fenofibrate Nanocrystallized [Fenofibrate] 160 mg PO DAILY 11/19/18 Levothyroxine [Synthroid -] 75 mcg PO DAILY 11/19/18 Losartan Potassium 25 mg PO DAILY 11/19/18 Metformin HCl [Glucophage] 500 mg PO BID 11/19/18 Rosuvastatin Calcium [Crestor] 20 mg PO DAILY 11/19/18 Ticagrelor [Brilinta] 90 mg PO BID 11/19/18 Alprazolam [Xanax] 0.5 mg PO PRN PRN 02/09/19 Duloxetine HCl [Cymbalta] 60 mg PO DAILY 02/09/19 Hydrocodone/Acetaminophen [Hydrocodon-Acetaminoph 7.5-325] 1 each PO PRN PRN 02/09/19 traZODone HCL [Trazodone HCl] 50 mg PO HS 02/09/19 Physical Exam-Neuro Vital Signs: Vital Signs Temperature 98.1 F 11/21/19 20:15 Pulse Rate 96 H 11/21/19 20:15 Respiratory Rate 19 11/21/19 20:15 Blood Pressure 129/83 11/21/19 20:15 O2 Sat by Pulse Oximetry (%) 99 11/21/19 20:15 Labs: CBC, BMP 11/21/19 20:30 11/21/19 20:30 INR, PTT INR 1.16 (0.83-1.09) H 11/21/19 20:30 - Neuro Exam Level Of Consciousness: Yes: Oriented to Person, Oriented to Place, Oriented to Time Eyes: Yes: PERRLA Speech: WNL Dominant Hand: Right DTR's: 0 Left Bicep, 0 Right Bicep, 0 Left Tricep, 0 Right Tricep Response to light touch: Normal Response to pain prick: Normal Response to temperature: Normal Response to vibration: Normal Coordination: Normal: Heel to Pel[place]o, Precision Finger Tap Motor Strength: 3/5: Left Arm, Right Arm, Left Leg, Right Leg Imaging - Results Cat Scan: Image Reviewed Problem List - Problems (1) Stroke Code(s): I63.9 - CEREBRAL INFARCTION, UNSPECIFIED Qualifiers: CVA mechanism: unspecified Qualified Code(s): I63.9 - Cerebral infarction, unspecified (2) Cellulitis Code(s): L03.90 - CELLULITIS, UNSPECIFIED Qualifiers: Site of cellulitis: extremity Site of cellulitis of extremity: upper extremity Laterality: right Qualified Code(s): L03.113 - Cellulitis of right upper limb (3) Right leg swelling Code(s): M79.89 - OTHER SPECIFIED SOFT TISSUE DISORDERS Assessment/Plan 1. Fall precaution 2. MRI piter to rule out CVA posterior circulation 3. C Duplex 4. Homocysteine level Thanks Jie Petersen MD
[2019-11-22 01:00] LABS: URINE APPEARANCE CLEAR; URINE BILIRUBIN NEGATIVE (NEGATIVE); URINE COLOR YELLOW; URINE GLUCOSE (UA) NEGATIVE (NEGATIVE); URINE KETONE TRACE (NEGATIVE); URINE LEUK ESTERASE NEGATIVE (NEGATIVE); URINE NITRITE NEGATIVE (NEGATIVE); URINE PROTEIN NEGATIVE (NEGATIVE)
[2019-11-22 06:03] LABS: BASO % 0.4 % (0-2.0); EOS % 4.8 % (0-4.5); HEMATOCRIT 41.3 % (35.4-49); HEMOGLOBIN 13.6 GM/dL (11.7-16.9); LYMPH % 24.2 % (8-40); MCH 28.7 pg (25.7-33.7); MCHC 32.8 g/dl (32.0-35.9); MEAN CELL VOLUME 87.5 fl (80-96); MEAN PLT VOLUME 8.9 fl (7.5-11.1); MONO % 10.4 % (3.8-10.2); NEUT % 60.2 % (42.8-82.8); PLATELET COUNT 146 K/MM3 (134-434); RBC 4.72 M/mm3 (4.00-5.60); RDW 14.1 % (11.9-15.9); WHITE BLOOD COUNT 7.8 K/mm3 (4.0-10.0)
[2019-11-22] MEDS: LEVOTHYROXINE NA 75 MCG TABLET (FP) PO SCH (06:09)
[2019-11-22] MEDS: metFORMIN HCL 500 MG TABLET (FP) PO SCH ×2 (06:09→17:26)
[2019-11-22 06:47] LABS: ALBUMIN 3.7 g/dl (3.4-5.0); BILIRUBIN,TOTAL 0.5 mg/dL (0.2-1); BLOOD UREA NITROGEN 17.9 mg/dL (7-18); CALCIUM 8.8 mg/dL (8.5-10.1); POTASSIUM 3.5 mmol/L (3.5-5.1); TOT PROT 6.7 g/dl (6.4-8.2)
--- NOTE | 2019-11-22 08:07 | CON.CARD ---
Consult Consult Specialty:: Cardiology - History of Present Illness History of Present Illness: 63 yo pt reports 2 falls out of bed this past week. The endorses a posterior/R sided PEREZ that has been intermittent, throbbing, non-radiating, and improves with Tylenol since the time of his fall. Pt was seen by PMD, had outpt CT and was found to have small lacunar infarct. Pt was sent in for further evaluation. He denies vision changes, painful eye movements, changes in sensation/strength, chest pain, SOB, abdominal pain, N/V/C/D, dysuria, hematuria Denies history of stroke or [place] Pt reports being compliant with medications. ASHD s/p multiple stents last one 1 year ago at [facility] by dr. Salvatore Sousa - History Source History Provided By: Patient, Medical Record - Past Medical History Cardio/Vascular: Yes: CAD, HTN, Hyperlipdemia - Alcohol/Substance Use Hx Alcohol Use: No - Smoking History Smoking history: Never smoked Have you smoked in the past 12 months: No Aproximately how many cigarettes per day: 0 If you are a former smoker, when did you quit?: 11/2017 Home Medications - Allergies Allergies/Adverse Reactions: Allergies Allergy/AdvReac Type Severity Reaction Status Date / Time No Known Allergies Allergy Verified 07/14/19 17:01 - Home Medications Home Medications: Ambulatory Orders Aspirin [ASA -] 81 mg PO DAILY 11/19/18 Fenofibrate Nanocrystallized [Fenofibrate] 160 mg PO DAILY 11/19/18 Levothyroxine [Synthroid -] 75 mcg PO DAILY 11/19/18 Losartan Potassium 25 mg PO DAILY 11/19/18 Metformin HCl [Glucophage] 500 mg PO BID 11/19/18 Rosuvastatin Calcium [Crestor] 20 mg PO DAILY 11/19/18 Ticagrelor [Brilinta] 90 mg PO BID 11/19/18 Alprazolam [Xanax] 0.5 mg PO PRN PRN 02/09/19 Duloxetine HCl [Cymbalta] 60 mg PO DAILY 02/09/19 Hydrocodone/Acetaminophen [Hydrocodon-Acetaminoph 7.5-325] 1 each PO PRN PRN 02/09/19 traZODone HCL [Trazodone HCl] 50 mg PO HS 02/09/19 Vital Signs: Vital Signs Temperature 99.2 F 11/22/19 05:00 Pulse Rate 79 11/22/19 06:30 Respiratory Rate 15 11/22/19 06:30 Blood Pressure 128/81 11/22/19 06:30 O2 Sat by Pulse Oximetry (%) 99 11/22/19 05:00 Constitutional: Yes: Well Nourished, No Distress, Calm Eyes: Yes: WNL, Conjunctiva Clear, EOM Intact HENT: Yes: WNL, Atraumatic, Normocephalic Neck: Yes: WNL, Supple, Trachea Midline Respiratory: Yes: WNL, Regular, CTA Bilaterally Gastrointestinal: Yes: WNL, Normal Bowel Sounds Renal/: Yes: WNL Cardiovascular: Yes: WNL, Regular Rate and Rhythm Musculoskeletal: Yes: WNL Extremities: Yes: WNL Integumentary: Yes: WNL ...Motor Strength: WNL - Other Data Labs, Other Data: CBC, BMP 11/22/19 05:40 11/22/19 05:40 INR, PTT INR 1.16 (0.83-1.09) H 11/21/19 20:30 Troponin, BNP 11/21/19 11/22/19 20:30 01:17 Troponin I < 0.02 < 0.02 Troponin, BNP 11/21/19 11/22/19 20:30 01:17 Troponin I < 0.02 < 0.02 Imaging - Results Chest X-ray: Pending EKG: Image Reviewed (sr rep abn) Other: Report Reviewed (ECHO ant wall HK ef 40-45-45%) Problem List - Problems (1) Stroke Code(s): I63.9 - CEREBRAL INFARCTION, UNSPECIFIED Qualifiers: CVA mechanism: unspecified Qualified Code(s): I63.9 - Cerebral infarction, unspecified (2) Allergic reaction Code(s): T78.40XA - ALLERGY, UNSPECIFIED, INITIAL ENCOUNTER (3) Cellulitis Code(s): L03.90 - CELLULITIS, UNSPECIFIED Qualifiers: Site of cellulitis: extremity Site of cellulitis of extremity: upper extremity Laterality: right Qualified Code(s): L03.113 - Cellulitis of right upper limb (4) Chest pain Code(s): R07.9 - CHEST PAIN, UNSPECIFIED Qualifiers: Chest pain type: unspecified Qualified Code(s): R07.9 - Chest pain, unspecified (5) Right leg swelling Code(s): M79.89 - OTHER SPECIFIED SOFT TISSUE DISORDERS Assessment/Plan s/p falls r/o CVA HTN HLP DM ASHD reduced EF on ECHO anterior wall HK ? old anterior wall mi Plan; Cont DAPT LDL below 70 Telemetry DVT PLX further RX as per neurology CC time spent 70 min
[2019-11-22] MEDS ORDERED: PT OWN MED DRAWER 7, Y5N ONE ×3 (08:41→20:45)
[2019-11-22] MEDS: TICAGRELOR 90 MG TABLET PO SCH ×2 (09:07→21:10)
[2019-11-22] MEDS: LOSARTAN POTASSIUM 25 MG TABLET PO SCH (09:07)
[2019-11-22] MEDS: FENOFIBRIC ACID 135 MG CAP PO SCH (09:07)
[2019-11-22] MEDS: DULoxetine HCL 30 MG CAPSULE.DR PO SCH (09:07)
[2019-11-22] MEDS: HEPARIN NA (PORCINE) 5,000 UNITS/ML 1ML VIAL SQ SCH ×2 (09:07→21:10)
[2019-11-22] MEDS: ASPIRIN 81 MG CHEWABLE TABLETS PO SCH (09:07)
--- NOTE | 2019-11-22 10:54 | ECHO ---
Version: 1 Name: LYNDA MOYA Exam: Adult Echocardiogram Study Date: 11/22/2019, 7:48 AM Age: 63 Years MMode/2D Measurements & Calculations IVSd: 1.14 cm LVIDs: 3.5 cm LVIDd: 5.0 cm LVPWd: 1.11 cm LAV (MOD-bp): 39.7 ml LVOT diam: 2.05 cm Ao root diam: 3.2 cm LA dimension: 4.0 cm Doppler Measurements & Calculations MV E max jw: 74.1 cm/sec Med E/e': 17.0 MV A max jw: 115.7 cm/sec Med Peak E' Jw: 4.4 cm/sec MV E/A: 0.64 Lat E/e': 9.2 Lat Peak E' Jw: 8.1 cm/sec Ao max P.8 mmHg Ao V2 max: 148.7 cm/sec AI P1/2t: 372.0 msec TR max jw: 213.1 cm/sec TR max P.2 mmHg Procedure The study was technically difficult with many images being suboptimal in quality. Left Ventricle Ejection Fraction = 40-45%. The transmitral spectral Doppler flow pattern is suggestive of impaired LV relaxation. Regional wall motion abnormalities cannot be excluded due to limited visualization. Ther e is mild to moderate anterior wall hypokinesis. Right Ventricle The right ventricle is normal in size and function. Atria The left atrium is mildly dilated. Right atrial size is normal. The interatrial septum is not well e valuated on this study. Mitral Valve The mitral valve is grossly normal. There is no mitral valve stenosis. There is trace to mild mitral regurgitation. Tricuspid Valve The tricuspid valve is normal in structure and function. There is mild tricuspid regurgitation. Righ t ventricular systolic pressure is normal. Aortic Valve There is mild aortic sclerosis.;. No hemodynamically significant valvular aortic stenosis. Mild aort ic regurgitation. Pulmonic Valve The pulmonic valve is not well seen, but is grossly normal. There is no pulmonic valvular stenosis. Great Vessels The aortic root is normal size. Mildly dilated ascending aorta. Pericardium/Pleura There is no pericardial effusion. Summary Statements The study was technically difficult with many images being suboptimal in quality. Regional wall motion abnormalities cannot be excluded due to limited visualization. There is mild to moderate anterior wall hypokinesis. Ejection Fraction = 40-45%. The transmitral spectral Doppler flow pattern is suggestive of impaired LV relaxation. The left atrium is mildly dilated. The interatrial septum is not well evaluated on this study. There is trace to mild mitral regurgitation. There is mild tricuspid regurgitation. Right ventricular systolic pressure is normal. There is mild aortic sclerosis.; Mild aortic regurgitation. Mildly dilated ascending aorta. There is no pericardial effusion. MD Lerma *Lee 11/22/2019, 10:53 AM Ordering Physician: Miryam Bird Performed By: Cielo Arndt
--- NOTE | 2019-11-22 12:04 | HP ---
Admitting History and Physical - Past Medical History Cardiovascular: Yes: CAD, HTN, Hyperlipdemia - Smoking History Smoking history: Never smoked Have you smoked in the past 12 months: No Aproximately how many cigarettes per day: 0 If you are a former smoker, when did you quit?: 11/2017 - Alcohol/Substance Use Hx Alcohol Use: No Home Medications - Allergies Allergies/Adverse Reactions: Allergies Allergy/AdvReac Type Severity Reaction Status Date / Time No Known Allergies Allergy Verified 12/20/19 07:29 - Home Medications Home Medications: Ambulatory Orders Aspirin [ASA -] 81 mg PO DAILY 11/19/18 Fenofibrate Nanocrystallized [Fenofibrate] 160 mg PO DAILY 11/19/18 Levothyroxine [Synthroid -] 75 mcg PO DAILY 11/19/18 Losartan Potassium 25 mg PO DAILY 11/19/18 Metformin HCl [Glucophage] 500 mg PO BID 11/19/18 Rosuvastatin Calcium [Crestor] 20 mg PO DAILY 11/19/18 Ticagrelor [Brilinta -] 90 mg PO BID 11/19/18 Alprazolam [Xanax] 0.5 mg PO PRN PRN 02/09/19 Duloxetine HCl [Cymbalta] 60 mg PO BID 02/09/19 traZODone HCL [Trazodone HCl] 50 mg PO HS 02/09/19 Metoprolol Tartrate 12.5 mg PO DAILY 12/18/19 Hydrocodone/Acetaminophen [Hydrocodon-Acetaminophn 10-325] 1 each PO Q4HWA PRN 12/19/19 Physical Examination Vital Signs: Vital Signs Temperature 97.7 F 11/22/19 09:47 Pulse Rate 89 11/22/19 09:47 Respiratory Rate 17 11/22/19 09:47 Blood Pressure 148/84 11/22/19 09:47 O2 Sat by Pulse Oximetry (%) 98 11/22/19 09:47 Labs: CBC, BMP 11/22/19 05:40 11/22/19 05:40 Problem List - Problems (1) CVA (cerebral vascular accident) Code(s): I63.9 - CEREBRAL INFARCTION, UNSPECIFIED (2) HTN (hypertension) Code(s): I10 - ESSENTIAL (PRIMARY) HYPERTENSION (3) HLD (hyperlipidemia) Code(s): E78.5 - HYPERLIPIDEMIA, UNSPECIFIED (4) HLD (hyperlipidemia) Code(s): E78.5 - HYPERLIPIDEMIA, UNSPECIFIED (5) Diabetes Code(s): E11.9 - TYPE 2 DIABETES MELLITUS WITHOUT COMPLICATIONS
--- NOTE | 2019-11-22 12:20 | PN ---
Progress Note, Physician History of Present Illness: 63 yo pt reports 2 falls out of bed this past week. The endorses a posterior/R sided PEREZ that has been intermittent, throbbing, non-radiating, and improves with Tylenol since the time of his fall. Pt was seen by PMD, had outpt CT and was found to have small lacunar infarct. Pt was sent in for further evaluation. He denies vision changes, painful eye movements, changes in sensation/strength, chest pain, SOB, abdominal pain, N/V/C/D, dysuria, hematuria Denies history of stroke or [place] Pt reports being compliant with medications. ASHD s/p multiple stents last one 1 year ago at [facility] by dr. Salvatore Sousa - Current Medication List Current Medications: Active Medications Aspirin (Asa -) 81 mg PO DAILY [facility] Last Admin: 11/22/19 09:07 Dose: 81 mg Documented by: Duloxetine HCl (Cymbalta -) 60 mg PO DAILY [facility] Last Admin: 11/22/19 09:07 Dose: 60 mg Documented by: Fenofibric Acid (Trilipix -) 135 mg PO DAILY [facility] Last Admin: 11/22/19 09:07 Dose: 135 mg Documented by: Heparin Sodium (Porcine) (Heparin -) 5,000 unit SQ BID [facility] Last Admin: 11/22/19 09:07 Dose: 5,000 unit Documented by: Sodium Chloride (Normal Saline -) 1,000 mls @ 42 mls/hr IV ASDIR [facility] Last Admin: 11/21/19 20:32 Dose: 42 mls/hr Documented by: Levothyroxine Sodium (Synthroid -) 75 mcg PO ACBK [facility] Last Admin: 11/22/19 06:09 Dose: 75 mcg Documented by: Losartan Potassium (Cozaar -) 25 mg PO DAILY [facility] Last Admin: 11/22/19 09:07 Dose: 25 mg Documented by: Metformin HCl (Glucophage -) 500 mg PO BIDAC [facility] Last Admin: 11/22/19 06:09 Dose: 500 mg Documented by: Rosuvastatin Calcium (Crestor -) 20 mg PO [facility] Ticagrelor (Brilinta -) 90 mg PO BID [facility] Last Admin: 11/22/19 09:07 Dose: 90 mg Documented by: Trazodone HCl (Desyrel -) 50 mg PO [facility] - Objective Vital Signs: Vital Signs Temperature 97.7 F 11/22/19 09:47 Pulse Rate 89 11/22/19 09:47 Respiratory Rate 17 11/22/19 09:47 Blood Pressure 148/84 11/22/19 09:47 O2 Sat by Pulse Oximetry (%) 98 11/22/19 09:47 Eyes: Yes: WNL, Conjunctiva Clear, EOM Intact HENT: Yes: WNL, Atraumatic, Normocephalic Neck: Yes: WNL, Supple, Trachea Midline Cardiovascular: Yes: WNL, Regular Rate and Rhythm Respiratory: Yes: WNL, Regular, CTA Bilaterally Gastrointestinal: Yes: WNL, Normal Bowel Sounds Genitourinary: Yes: WNL Musculoskeletal: Yes: WNL Extremities: Yes: WNL Edema: No Integumentary: Yes: WNL ...Motor Strength: WNL Labs: CBC, BMP 11/22/19 05:40 11/22/19 05:40 INR, PTT INR 1.16 (0.83-1.09) H 11/21/19 20:30 Problem List - Problems (1) Stroke Code(s): I63.9 - CEREBRAL INFARCTION, UNSPECIFIED Qualifiers: CVA mechanism: unspecified Qualified Code(s): I63.9 - Cerebral infarction, unspecified (2) Allergic reaction Code(s): T78.40XA - ALLERGY, UNSPECIFIED, INITIAL ENCOUNTER (3) Cellulitis Code(s): L03.90 - CELLULITIS, UNSPECIFIED Qualifiers: Site of cellulitis: extremity Site of cellulitis of extremity: upper extr emity Laterality: right Qualified Code(s): L03.113 - Cellulitis of right upper limb (4) Chest pain Code(s): R07.9 - CHEST PAIN, UNSPECIFIED Qualifiers: Chest pain type: unspecified Qualified Code(s): R07.9 - Chest pain, unspecified (5) Right leg swelling Code(s): M79.89 - OTHER SPECIFIED SOFT TISSUE DISORDERS Assessment/Plan s/p falls r/o CVA HTN HLP DM ASHD reduced EF on ECHO anterior wall HK ? old anterior wall mi Plan; Cont DAPT LDL below 70 Telemetry DVT PLX further RX as per neurology CC time spent 36 min
[2019-11-22] MEDS ORDERED: ACETAMINOPHEN 500 MG TABLET (FP) PO PRN (12:21)
[2019-11-22] MEDS ORDERED: ACETAMINOPHEN 325 MG TABLET (FP) PO PRN (12:27)
--- NOTE | 2019-11-22 12:31 | EKG ---
Test Reason : Blood Pressure : / mmHG Vent. Rate : 094 BPM Atrial Rate : 094 BPM P-R Int : 154 ms QRS Dur : 094 ms QT Int : 374 ms P-R-T Axes : 033 -29 051 degrees QTc Int : 467 ms SINUS RHYTHM WITH OCCASIONAL PREMATURE VENTRICULAR COMPLEXES POSSIBLE LEFT ATRIAL ENLARGEMENT INFERIOR INFARCT (CITED ON OR BEFORE 19-NOV-2018) CANNOT RULE OUT ANTERIOR INFARCT (CITED ON OR BEFORE 09-FEB-2019) ABNORMAL ECG WHEN COMPARED WITH ECG OF 14-JUL-2019 16:59, PREMATURE VENTRICULAR COMPLEXES ARE NOW PRESENT Confirmed by GLENIS GRACE MD ([id number]) on 11/22/2019 12:30:32 PM Referred By: Confirmed By:GLENIS GRACE MD
[2019-11-22] MEDS: SODIUM CHLORIDE 1,000 ML IV SCH ×2 (17:26→19:51)
[2019-11-22] MEDS ORDERED: ROSUVASTATIN CA 20 MG TABLET (FP) PO SCH (22:00)
[2019-11-22] MEDS ORDERED: traZODone HCL 50 MG TABLET (FP) PO SCH (22:00)
[2019-11-22] MEDS ORDERED: BACITRACIN 15 GM TUBE TOPICAL OINTMENT TP ONE (22:15)
[2019-11-23] MEDS: metFORMIN HCL 500 MG TABLET (FP) PO SCH (06:44)
[2019-11-23] MEDS: LEVOTHYROXINE NA 75 MCG TABLET (FP) PO SCH (06:44)
[2019-11-23 08:21] VITALS: TEMP 97.9
[2019-11-23] MEDS ORDERED: PT OWN MED DRAWER 7, Y5N ONE (09:27)
[2019-11-23] MEDS: ASPIRIN 81 MG CHEWABLE TABLETS PO SCH (09:32)
[2019-11-23] MEDS: LOSARTAN POTASSIUM 25 MG TABLET PO SCH (09:32)
[2019-11-23] MEDS: TICAGRELOR 90 MG TABLET PO SCH (09:32)
[2019-11-23] MEDS: DULoxetine HCL 30 MG CAPSULE.DR PO SCH (09:33)
[2019-11-23] MEDS: FENOFIBRIC ACID 135 MG CAP PO SCH (09:33)
[2019-11-23] MEDS: HEPARIN NA (PORCINE) 5,000 UNITS/ML 1ML VIAL SQ SCH (09:33)
[2019-11-23 12:46] VITALS: BP 124/89; PULSE 97
--- NOTE | 2019-11-23 16:42 | PN ---
Progress Note, Physician History of Present Illness: 63 yo pt reports 2 falls out of bed this past week. The endorses a posterior/R sided PEREZ that has been intermittent, throbbing, non-radiating, and improves with Tylenol since the time of his fall. Pt was seen by PMD, had outpt CT and was found to have small lacunar infarct. Pt was sent in for further evaluation. He denies vision changes, painful eye movements, changes in sensation/strength, chest pain, SOB, abdominal pain, N/V/C/D, dysuria, hematuria Denies history of stroke or [place] Pt reports being compliant with medications. ASHD s/p multiple stents last one 1 year ago at [facility] by dr. Salvatore Sousa - Objective Vital Signs: Vital Signs Temperature 97.9 F 11/23/19 08:00 Pulse Rate 97 H 11/23/19 12:00 Respiratory Rate 18 11/23/19 12:00 Blood Pressure 124/89 11/23/19 12:00 O2 Sat by Pulse Oximetry (%) 99 11/23/19 12:00 Eyes: Yes: WNL, Conjunctiva Clear, EOM Intact HENT: Yes: WNL, Atraumatic, Normocephalic Neck: Yes: WNL, Supple, Trachea Midline Cardiovascular: Yes: WNL, Regular Rate and Rhythm Respiratory: Yes: WNL, Regular, CTA Bilaterally Gastrointestinal: Yes: WNL, Normal Bowel Sounds Genitourinary: Yes: WNL Musculoskeletal: Yes: WNL Extremities: Yes: WNL Edema: No Integumentary: Yes: WNL Neurological: Yes: WNL, Alert, Oriented ...Motor Strength: WNL Psychiatric: Yes: WNL Labs: CBC, BMP 11/22/19 05:40 11/22/19 05:40 INR, PTT INR 1.16 (0.83-1.09) H 11/21/19 20:30 Problem List - Problems (1) Stroke Code(s): I63.9 - CEREBRAL INFARCTION, UNSPECIFIED Qualifiers: CVA mechanism: unspecified Qualified Code(s): I63.9 - Cerebral infarction, unspecified (2) Allergic reaction Code(s): T78.40XA - ALLERGY, UNSPECIFIED, INITIAL ENCOUNTER (3) Cellulitis Code(s): L03.90 - CELLULITIS, UNSPECIFIED Qualifiers: Site of cellulitis: extremity Site of cellulitis of extremity: upper extremity Laterality: right Qualified Code(s): L03.113 - Cellulitis of right upper limb (4) Chest pain Code(s): R07.9 - CHEST PAIN, UNSPECIFIED Qualifiers: Chest pain type: unspecified Qualified Code(s): R07.9 - Chest pain, unspecified (5) Right leg swelling Code(s): M79.89 - OTHER SPECIFIED SOFT TISSUE DISORDERS Assessment/Plan s/p falls r/o CVA HTN HLP DM ASHD reduced EF on ECHO anterior wall HK ? old anterior wall mi Plan; Cont DAPT LDL below 70 Telemetry DVT PLX further RX as per neurology CC time spent 36 min
--- NOTE | 2019-11-25 10:11 | EKG ---
Test Reason : Blood Pressure : / mmHG Vent. Rate : 094 BPM Atrial Rate : 094 BPM P-R Int : 160 ms QRS Dur : 094 ms QT Int : 368 ms P-R-T Axes : 040 -25 045 degrees QTc Int : 460 ms SINUS RHYTHM WITH OCCASIONAL PREMATURE VENTRICULAR COMPLEXES INFERIOR INFARCT (CITED ON OR BEFORE 19-NOV-2018) ABNORMAL ECG WHEN COMPARED WITH ECG OF 21-NOV-2019 20:22, NONSPECIFIC T WAVE ABNORMALITY NO LONGER EVIDENT IN ANTERIOR LEADS Confirmed by Danielle Brock ([id number]) on 11/25/2019 10:11:20 AM Referred By: Cas REEVES Confirmed By:Danielle Brock
== END 2019-11-23 13:59 | disposition home or self-care (01) | DRG 66 ==
LOC: JER 19:06 → JERBED 19:40 → JICU 11-22 03:22
PROVIDERS: ADMIT Internal Medicine; ATTEND Internal Medicine
DX: I63.9 Cerebral infarction, unspecified (principal); I10 Essential (primary) hypertension; E11.9 Type 2 diabetes mellitus without complications; I25.10 Atherosclerotic heart disease of native coronary artery without angina pectoris; E78.5 Hyperlipidemia, unspecified; Z79.84 Long term (current) use of oral hypoglycemic drugs; M79.89 Other specified soft tissue disorders
CPT/HCPCS: 36415; 70551-TC; 80053; 80061; 81003; 82550; 82962; 83036; 83090; 83721; 84443; 84484; 85025; 85610; 85730; 86850; 86900; 86901; 93005; 93010; 93306-TC; 93880-TC; 97116-GP; 97161-GP; 99285-25; J1644; U0003

== ENCOUNTER 2019-12-20 04:25 | Day surgery (SDC) | payer OTHER ==
[2019-12-18 15:11] VITALS: BMI 32.3
[~2019-12-20 04:25] MED LIST: BUPIVACAINE HCL/PF 0.5% (5 MG/ML) 30 ML VIAL IJ ONE; IOHEXOL 180 MG/1 ML ML IJ ONE; LIDOCAINE HCL 1%, 10 MG/ML (20ML VIAL) INF ONE
[2019-12-20] MEDS ORDERED: BUPIVACAINE HCL 50 ML ONE (07:13)
[2019-12-20] MEDS ORDERED: LIDOCAINE HCL 1%, 10 MG/ML (20ML VIAL) ONE (07:13)
[2019-12-20] MEDS ORDERED: BUPIVACAINE HCL/PF 0.25% (2.5MG/ML) 10 ML VIAL ONE (07:13)
[2019-12-20] MEDS ORDERED: DEXAMETHASONE SOD PHOSPHATE 4 MG/1 ML VIAL ONE (07:19)
[2019-12-20] MEDS ORDERED: IOHEXOL 180 MG/1 ML ML IJ ONE (08:34)
[2019-12-20] MEDS ORDERED: BUPIVACAINE HCL/PF 0.75% 10 ML VIAL PNB ONE (08:34)
[2019-12-20] MEDS ORDERED: LIDOCAINE HCL 1%, 10 MG/ML (20ML VIAL) INF ONE (08:34)
[2019-12-20 09:00] VITALS: BP 126/75; PULSE 66; TEMP 96.9
--- NOTE | 2019-12-23 21:59 | PROC ---
Procedure Note Procedure: Pre procedure Diagnosis: Lumbar Spondylosis Post Procedure Diagnosis: same Anesthesia: Local Procedure Performed: Right and Left L1 L2 L3 Medial Branch Blocks under Fluoroscopic Guidance Procedure: After the risks and benefits were explained, informed consent was obtained. The patient was then taken to the procedure room and positioned prone on the procedure table. Time out was performed. The region overlying the appropriate vertebral bodies was identified using fluoroscopy. The skin was prepped and draped in the usual sterile fashion. The skin and soft tissues were anesthetized using 1% lidocaine. Using fluoroscopic guidance, 22 gauge 3.5 inch spinal needles were then introduced to the juncture of the superior articular processes and the transverse processes of the RIGHT L1 L2 and L3 medial branches are located. Omnipaque 180 confirmed appropriate needle placement. There was no epidural or vascular flow observed. .75% bupivacaine was drawn into a syringe. 0.5cc of this solution was then injected at each level. The same procedure was repeated on the LEFT side at the same levels. The patient tolerated the procedure well and there were no complications. The patient was taken to the post procedure recovery area in good condition. Vital signs remained stable before, and after the procedure. The patient was given oral follow-up instructions.The patient was givena follow up appointment with me in the near future. Benjamín Vazquez D.O.
== END 2019-12-20 09:38 | disposition home or self-care (01) ==
LOC: JASU-SURG 04:25
PROVIDERS: ATTEND Pain Medicine Pain Medicine
PROC: 3E0T33Z Introduction of Anti-inflammatory into Peripheral Nerves and Plexi, Percutaneous Approach (ICD-10-PCS; 2019-12-20)
PROC: 3E0T3BZ Introduction of Anesthetic Agent into Peripheral Nerves and Plexi, Percutaneous Approach (ICD-10-PCS; principal; 2019-12-20 08:30)
DX: M47.896 Other spondylosis, lumbar region (principal)
CPT/HCPCS: 76000-TC-FY

== ENCOUNTER 2020-01-10 04:56 | Day surgery (SDC) | payer OTHER ==
[2020-01-09 15:14] VITALS: BMI 32.3
--- OUTSIDE RECORDS SUMMARY | 2020-01-10 05:04 | XMS ---
:1955 Author Organization [facility] Care Team Providers Name Role Phone Benjamín Vazquez Unavailable Benjamín Vazquez Unavailable Re-disclosure Warning The records that you are about to access may contain information from federally- assisted alcohol or drug abuse programs. If such information is present, then the following federally mandated warning applies: This information has been disclosed to you from records protected by federal confidentiality rules (42 CFR part 2). The federal rules prohibit you from making any further disclosure of this information unless further disclosure is expressly permitted by the written consent of the person to whom it pertains or as otherwise permitted by 42 CFR part 2. A general authorization for the release of medical or other information is NOT sufficient for this purpose. The Federal rules restrict any use of the information to criminally investigate or prosecute any alcohol or drug abuse patient.The records that you are about to access may contain highly sensitive health information, the redisclosure of which is protected by Article 27-F of the [facility] Public Health law. If you continue you may haveaccess to information: Regarding HIV / AIDS; Provided by facilities licensed or operated by the [facility] Office of Mental Health; or Provided by the [facility] Office for People With Developmental Disabilities. If such information is present, then the following [place] mandated warning applies: This information has been disclosed to you from confidential records which are protected by state law. State law prohibits you from making any further disclosure of this information without the specific written consent of the person to whom it pertains, or as otherwise permitted by law. Any unauthorized further disclosure in violation of state law may result in a fine or retirement sentence or both. A general authorization for the release of medical or other information is NOT sufficient authorization for further disclosure. Encounters Encounter Providers Location Date Indications Data Source(s ) Attender: Benjamín 12/31/2019 [facility] ([facility] 12:00:00 AM EDT Medical, ) Office Attender: Benjamín Vazquez 12/05/2019 12:00:00 AM EDT [facility] ([facility], ) Office Insurance Providers Payer name Policy type Policy ID Covered Covered democrat's Policy P samm / Coverage democrat ID relationship to [employer] Inf ormation type [place]ard MEDICAID [id number] SP [id number] MEDICARE [id number] MEDICAID OF [id number] [place] [id number] 1 [id number] PART B [facility] MEDICAID [id number] SP [id number] [facility] [id number] 500 HEALTH NON CAP Problems, Conditions, and Diagnoses Code Display Name Description Problem Type Effective Dates Data Source(s) M47.896 Other OTHER SPONDYLOSIS, Problem 12/05/2019 [facility] ([facility] spondylosis, LUMBAR REGION 12:00:00 AM EDT [facility], lumbar region ) M47.896 Other OTHER SPONDYLOSIS, Problem 12/05/2019 [facility] ([facility] spondylosis, LUMBAR REGION 12:00:00 AM EDT [facility], lumbar region ) Surgeries/Procedures Procedure Description Date Indications Data Source(s) OFFICE OUTPATIENT VISIT 12/31/2019 [facility] ([facility] 15 MINUTES 12:00:00 AM EDT Medical, PC) Documentation of current 12/05/2019 [facility] ([facility] (procedure) 12:00:00 AM EDJonathan [facility] ) Documentation of current 12/05/2019 [facility] ([facility] medications (procedure) 12:00:00 AM EDT edical, ) Documentation of current 12/05/2019 [facility] ([facility] (procedure) 12:00:00 AM EDT edical, PC) Documentation of current 12/05/2019 [facility] ([facility] (procedure) 12:00:00 AM EDT edical, PC) Documentation of current 12/05/2019 [facility] ([facility] (procedure) 12:00:00 AM EDT edical, PC) OFFICE OUTPATIENT VISIT 12/05/2019 [facility] ([facility] 15 MINUTES 12:00:00 AM EDT Medical, ) Documentation of current 12/05/2019 [facility] ([facility] (procedure) 12:00:00 AM EDT edical, PC) Documentation of current 12/05/2019 [facility] ([facility] (procedure) 12:00:00 AM EDT edical, ) OFFICE OUTPATIENT VISIT 12/05/2019 [facility] ([facility] 15 MINUTES 12:00:00 AM EDT Medical, ) Results ID Date Data Source [id number] 01/05/2020 02:52:00 PM EDT [facility] Name Value Range Interpretation Description Data Sup porting Code Source(s) Document(s ) SARS [facility] coronavirus 2 RNA This lab was ordered by [facility] and reported by [facility]. ID Date Data Source [id number] 12/16/2019 02:08:00 PM EDT [facility] Name Value Range Interpretation Description Data Sup porting Code Source(s) Document(s ) SARS [facility] coronavirus 2 RNA This lab was ordered by [facility] and reported by [facility]. ID Date Data Source [id number] 11/22/2019 02:35:00 AM EDT [facility] Name Value Range Interpretation Description Data Sup porting Code Source(s) Document(s ) SARS [facility] coronavirus 2 RNA This lab was ordered by [facility] and reported by [facility]. ID Date Data Source [id number] 09/17/2019 12:00:00 AM EDT [facility] Name Value Range Interpretation Code Description Data Sera rce(s) Supporting Document(s ) 2019-nCoV [facility] RNA XXX CHRIS+probe- Imp This lab was ordered by [facility] and reported by [facility]. ID Date Data Source [id number] 08/21/2019 12:00:00 AM EDT [facility] Name Value Range Interpretation Code Description Data Sera rce(s) Supporting Document(s ) 2019-nCoV [facility] RNA XXX CHRIS+probe- Imp This lab was ordered by [facility] and reported by [facility]. Procedure Social History Code Duration Value Status Description Data Source(s ) Smoking 12/31/2019 - No alcohol - completed - No alcohol - No M [facility]GEN ([facility] 12:00:00 AM EDT No smoking No smoking No [facility], ) illicit drugs drugs Smoking 12/31/2019 Unknown if ever completed Unknown if ever [facility] EN ([facility] 12:00:00 AM EDT smoked smoked Medical, ) Smoking 12/09/2019 - No alcohol - completed - No alcohol - No M [facility]GEN ([facility] 12:00:00 AM EDT No smoking No smoking No [facility], ) illicit drugs drugs Smoking 12/09/2019 Unknown if ever completed Unknown if ever [facility] EN ([facility] 12:00:00 AM EDT smoked smoked Medical, ) Vital Signs ID Date Data Source UNK Name Value Range Interpretation Code Description Data Source(s) Heart rate 63 /min 63 /min [facility] ([facility] , ) Inhaled oxygen 97 % 97 % [facility] ([facility], ) Diastolic blood 78 mm[Hg] 78 mm[Hg] [facility] (S t pressure [facility] , ) Systolic blood 126 mm[Hg] 126 mm[Hg] [facility] (St pressure [facility] , ) Body weight 220 lb 220 lb [facility] ([facility] , ) Heart rate 63 /min 63 /min [facility] ([facility] , ) Inhaled oxygen 97 % 97 % [facility] ([facility], ) Diastolic blood 78 mm[Hg] 78 mm[Hg] [facility] (S t pressure [facility] , ) Systolic blood 126 mm[Hg] 126 mm[Hg] [facility] (St pressure [facility] , ) Body weight 220 lb 220 lb [facility] ([facility] , )
[2020-01-10 09:05] VITALS: TEMP 97.7
--- NOTE | 2020-01-10 10:07 | PROC ---
Procedure Note Procedure: Pre procedure Diagnosis: Lumbar Spondylosis Post Procedure Diagnosis: same Anesthesia: Local Procedure Performed: Right and Left t12 L1 L2 Medial Branch Blocks under Fluoroscopic Guidance Procedure: After the risks and benefits were explained, informed consent was obtained. The patient was then taken to the procedure room and positioned prone on the procedure table. Time out was performed. The region overlying the appropriate vertebral bodies was identified using fluoroscopy. The skin was prepped and draped in the usual sterile fashion. The skin and soft tissues were anesthetized using 1% lidocaine. Using fluoroscopic guidance, 22 gauge 3.5 inch spinal needles were then introduced to the juncture of the superior articular processes and the transverse processes of the RIGHT T12 L1 L2 medial branches are located. Omnipaque 180 confirmed appropriate needle placement. There was no epidural or vascular flow observed. .75% bupivacaine was drawn into a syringe. 0.5cc of this solution was then injected at each level. The same procedure was repeated on the LEFT side at the same levels. The patient tolerated the procedure well and there were no complications. The patient was taken to the post procedure recovery area in good condition. Vital signs remained stable before, and after the procedure. The patient was given oral follow-up instructions.The patient was givena follow up appointment with me in the near future. Benjamín Vazquez D.O.
[2020-01-10] MEDS ORDERED: IOHEXOL 180 MG/1 ML ML IJ ONE (10:50)
[2020-01-10] MEDS ORDERED: BUPIVACAINE HCL/PF 0.75% 10 ML VIAL PNB ONE (10:50)
[2020-01-10] MEDS ORDERED: LIDOCAINE HCL 1% PRESERVATIVE FREE - 30ML VIAL IJ ONE (10:50)
[2020-01-10 11:24] VITALS: BP 137/86; PULSE 85
== END 2020-01-10 11:32 | disposition home or self-care (01) ==
LOC: JASU-SURG 04:56
PROVIDERS: ATTEND Pain Medicine Pain Medicine
PROC: 3E0T33Z Introduction of Anti-inflammatory into Peripheral Nerves and Plexi, Percutaneous Approach (ICD-10-PCS; 2020-01-10)
PROC: 3E0T3BZ Introduction of Anesthetic Agent into Peripheral Nerves and Plexi, Percutaneous Approach (ICD-10-PCS; principal; 2020-01-10 10:00)
DX: M47.816 Spondylosis without myelopathy or radiculopathy, lumbar region (principal); M54.5 Low back pain
CPT/HCPCS: 76000-TC-FY

== ENCOUNTER 2020-01-24 04:29 | Day surgery (SDC) | payer OTHER ==
[2020-01-23 17:48] VITALS: BMI 32.3
[~2020-01-24 04:29] MED LIST changes: +BUPIVACAINE 0.75% IN DEXTROSE/PF 2ML AMPULE NR ONE; -BUPIVACAINE HCL/PF 0.5% (5 MG/ML) 30 ML VIAL IJ ONE; +BUPIVACAINE HCL/PF 0.75% 10 ML VIAL NR ONE; +DEXAMETHASONE SOD PHOSPHATE 10 MG/1 ML VIAL IVPUSH ONE; +LIDOCAINE HCL 1% PRESERVATIVE FREE - 30ML VIAL IJ ONE; -LIDOCAINE HCL 1%, 10 MG/ML (20ML VIAL) INF ONE; +LIDOCAINE HCL/PF 2% SDV 5ML VIAL SQ ONE
--- OUTSIDE RECORDS SUMMARY | 2020-01-24 05:13 | XMS ---
:1955 Author Organization [facility] Care Team Providers Name Role Phone [...] is protected by Article 27-F of the [facility] Public Health law. If you continue you may haveaccess to information: Regarding HIV / AIDS; Provided by facilities licensed or operated by the [facility] Office of Mental Health; or Provided by the [facility] Office for People With Developmental Disabilities. If such information is present, then the following [place] State mandated warning applies: This information has [...] Date Indications Data Source(s ) Attender: Benjamín 01/14/2020 [facility] ([facility] 12:00:00 AM EDT Medical, PC) Office Attender: Benjamín Vazquez 12/31/2019 12:00:00 AM EDT [facility] ([facility]) Office Attender: Benjamín Vazquez 12/05/2019 12:00:00 AM EDT [facility] ([facility]) Office Insurance Providers Payer name Policy type Policy ID Covered Covered libertarian's Policy P samm / Coverage libertarian ID relationship to [employer] Inf ormation type [place]ard MEDICAID [id number] SP [id number] MEDICARE [id number] SP [id number] P68 MEDICAID [id number] SP [id number] MEDICARE [id number] SP [id number] P68 MEDICAID OF [id number] [place] [id number] 1 [id number] PART B [facility] MEDICAID [id number] SP [id number] [facility] [id number] 500 HEALTH NON CAP Problems, Conditions, and Diagnoses Code Display Name Description Problem Type Effective Dates Data Source(s) M47.816 Spondylosis SPONDYLOSIS Problem 01/14/2020 [facility] ([facility] 12:00:00 AM EDT [facility], myelopathy or MYELOPATHY OR PC) radiculopathy, RADICULOPATHY, lumbar region LUMBAR REGION M47.896 Other OTHER Problem 12/05/2019 [facility] (St spondylosis, SPONDYLOSIS, 12:00:00 AM EDT [facility], lumbar region LUMBAR REGION PC) M47.896 Other OTHER Problem 12/05/2019 [facility] (St spondylosis, SPONDYLOSIS, 12:00:00 AM EDT [facility], lumbar region LUMBAR REGION ) M47.896 Other OTHER Problem 12/05/2019 [facility] (St spondylosis, SPONDYLOSIS, 12:00:00 AM EDT [facility] s Medical, lumbar region LUMBAR REGION ) Surgeries/Procedures Procedure Description Date Indications Data Source(s) Documentation of current 01/14/2020 [facility] ([facility] medications (procedure) 12:00:00 AM EDT [facility], ) PHYSICIAN TELEPHONE 01/14/2020 [facility] ( [facility] EVALUATION 11-20 MIN 12:00:00 AM EDT [facility], ) OFFICE OUTPATIENT VISIT 12/31/2019 [facility] ([facility] 15 MINUTES 12:00:00 AM [facility], ) OFFICE OUTPATIENT VISIT 12/31/2019 [facility] ([facility] 15 MINUTES 12:00:00 AM [facility], ) Documentation of current 12/05/2019 [facility] ([facility] medications (procedure) 12:00:00 AM EDT [facility], ) Documentation of current 12/05/2019 [facility] ([facility] medications (procedure) 12:00:00 AM EDT [facility], ) Documentation of current 12/05/2019 [facility] ([facility] medications (procedure) 12:00:00 AM EDT [facility], ) Documentation of current 12/05/2019 [facility] ([facility] medications (procedure) 12:00:00 AM EDT [facility], ) Documentation of current 12/05/2019 [facility] ([facility] medications (procedure) 12:00:00 AM EDT [facility], ) OFFICE OUTPATIENT VISIT 12/05/2019 [facility] ([facility] 15 MINUTES 12:00:00 AM [facility], ) Documentation of current 12/05/2019 [facility] ([facility] medications (procedure) 12:00:00 AM EDT [facility], ) Documentation of current 12/05/2019 [facility] ([facility] medications (procedure) 12:00:00 AM EDT [facility], ) Documentation of current 12/05/2019 [facility] ([facility] medications (procedure) 12:00:00 AM EDT [facility], PC) Documentation of current 12/05/2019 [facility] ([facility] medications (procedure) 12:00:00 AM EDT edical, PC) Documentation of current 12/05/2019 [facility] ([facility] medications (procedure) 12:00:00 AM EDT M [facility], PC) OFFICE OUTPATIENT VISIT 12/05/2019 [facility] EN ([facility] 15 MINUTES 12:00:00 AM EDT Medical, ) Documentation of current 12/05/2019 [facility] ([facility] medications (procedure) 12:00:00 AM EDT [facility], PC) Documentation of current 12/05/2019 [facility] ([facility] medications (procedure) 12:00:00 AM EDT edical, PC) OFFICE OUTPATIENT VISIT 12/05/2019 [facility] ([facility] 15 MINUTES 12:00:00 AM EDT Medical, ) Results ID Date Data Source [id number] 01/20/2020 03:00:00 PM EDT [facility] Name Value Range Interpretation Description Data Sup porting Code Source(s) Document(s ) 2019 Novel [facility] Coronavirus RNA Interpretation Unspecified Specimen Qualitative CHRIS Probe Detection This lab was ordered by [facility] and reported by [facility]. ID Date Data Source [id number] 01/05/2020 02:52:00 PM EDT [facility] Name Value Range Interpretation Description Data Sup porting Code Source(s) Document(s ) SARS [facility] coronavirus 2 RNA This lab was ordered by [facility] and reported by [facility]. ID Date Data Source [id number] 12/16/2019 02:08:00 PM EDT [facility] Name Value Range Interpretation Description Data Sup porting Code Source(s) Document(s ) SARS [facility] coronavirus 2 RNA This lab was ordered by [facility] and reported by [facility]. ID Date Data Source [id number] 11/22/2019 02:35:00 AM EDT [facility] Name Value Range Interpretation Description Data Sup porting Code Source(s) Document(s ) SARS [facility] coronavirus 2 RNA This lab was ordered by [facility] and reported by [facility]. ID Date Data Source [id number] 09/17/2019 12:00:00 AM EDT [facility] Name Value Range Interpretation Code Description Data Sera rce(s) Supporting Document(s ) 2019-nCoV [facility] RNA XXX CHRIS+probe- Imp This lab was ordered by [facility] and reported by [facility]. ID Date Data Source [id number] 08/21/2019 12:00:00 AM EDT [facility] Name Value Range Interpretation Code Description Data Sera rce(s) Supporting Document(s ) 2018-nCoV [facility] RNA XXX CHRIS+probe- Imp This lab was ordered by [facility] and reported by [facility]. Procedure Social History Code Duration Value Status Description Data Source(s ) Smoking 01/14/2020 - No alcohol - completed - No alcohol - No M EDGEN ([facility] 12:00:00 AM EDT No smoking No smoking No [facility], ) illicit drugs drugs Smoking 01/14/2020 Unknown if ever completed Unknown if ever MEDG EN ([facility] 12:00:00 AM EDT smoked smoked Medical, ) Smoking 12/31/2019 - No alcohol - completed - No alcohol - No M EDGEN ([facility] 12:00:00 AM EDT No smoking No smoking No [facility], ) illicit drugs drugs Smoking 12/31/2019 Unknown if ever completed Unknown if ever [facility] EN ([facility] 12:00:00 AM EDT smoked smoked Medical, ) Smoking 12/09/2019 - No alcohol - completed - No alcohol - No M EDGEN ([facility] 12:00:00 AM EDT No smoking No smoking No [facility], ) illicit drugs drugs Smoking 12/09/2019 Unknown if ever completed Unknown if ever [facility] EN ([facility] 12:00:00 AM EDT smoked smoked Medical, ) Vital Signs ID Date Data Source UNK Name Value Range Interpretation Code Description Data Source(s) Heart rate 63 /min 63 /min [facility] ([facility] , ) Inhaled oxygen 97 % 97 % [facility] ([facility], ) Diastolic blood 78 mm[Hg] 78 mm[Hg] [facility] (S t [facility] , ) Systolic blood 126 mm[Hg] 126 mm[Hg] [facility] ([facility] , ) Body weight 220 lb 220 lb [facility] ([facility] , ) Heart rate 63 /min 63 /min [facility] ([facility]) Inhaled oxygen 97 % 97 % [facility] ([facility]) Diastolic blood 78 mm[Hg] 78 mm[Hg] [facility] ([facility]) Systolic blood 126 mm[Hg] 126 mm[Hg] [facility] ([facility] , ) Body weight 220 lb 220 lb [facility] ([facility]) Heart rate 63 /min 63 /min [facility] ([facility]) Inhaled oxygen 97 % 97 % [facility] ([facility], ) Diastolic blood 78 mm[Hg] 78 mm[Hg] [facility] [place] Systolic blood 126 mm[Hg] 126 mm[Hg] [facility] ([facility] , ) Body weight 220 lb 220 lb [facility] ([facility])
[2020-01-24] MEDS ORDERED: TRIAMCINOLONE ACET 40MG/1ML VIAL ONE (10:17)
[2020-01-24] MEDS ORDERED: LIDOCAINE HCL/PF 1% SDV 5ML VIAL ONE (10:46)
[2020-01-24] MEDS ORDERED: LIDOCAINE HCL/PF 2% SDV 5ML VIAL SQ ONE (13:52)
[2020-01-24] MEDS ORDERED: BUPIVACAINE HCL/PF 0.75% 10 ML VIAL NR ONE (13:52)
[2020-01-24] MEDS ORDERED: DEXAMETHASONE SOD PHOSPHATE 20 MG/5 ML VIAL IM ONE (13:52)
[2020-01-24] MEDS ORDERED: LIDOCAINE HCL 1% PRESERVATIVE FREE - 30ML VIAL IJ ONE (13:52)
[2020-01-24] MEDS ORDERED: IOHEXOL 180 MG/1 ML ML IJ ONE (13:52)
[2020-01-24 14:40] VITALS: TEMP 97.8
[2020-01-24 15:05] VITALS: BP 134/84; PULSE 66
--- NOTE | 2020-02-04 09:12 | PROC ---
Procedure Note Procedure: Pre procedure Diagnosis: Lumbar Spondylosis Post Procedure Diagnosis: same Anesthesia: local Procedure Performed: Right T12 L1 L2 medial branch radiofrequency Ablation The patient was sterilely prepped and draped in the usual fashion while in the prone position. 1% Lidocaine was used to provide soft tissue anesthesia. Time out was performed. Under fluoroscopic guidance, 10mm active tip radiofrequency probes were successfully directed over the RIGHT T12, L1, L2 dorsal rami at the intersection of the transverse processes and superior articular processes. Needle tip positions were confirmed with both sensory and motor stimulation, both of which resulted in appropriate responses in the lumbar region, and no reponse in the lower extremities. Lesions were performed at each site at a temperature of 90 degrees Celsius for duration of 90 seconds. Prior to each lesion, 1mL of a cocktail of 4mL of 2% li docaine and 1mL Omnipaque 180 was injected at each site. Following each lesion, 0.5mL of solution containing 1mL dexamethasone and 2mL of .75% bupivacaine, was injected at each site. The patient tolerated the procedure well and there were no complications. The patient was taken to the post procedure recovery area in good condition. Vital signs remained stable before, during, and after the procedure. The patient was given oral and written follow-up instructions. The patient was given a follow up appointment with me in the near future. Benjamín SHAVER
== END 2020-01-24 15:10 | disposition home or self-care (01) ==
LOC: JASU-SURG 04:29
PROVIDERS: ATTEND Pain Medicine Pain Medicine
PROC: 3E0T3TZ Introduction of Destructive Agent into Peripheral Nerves and Plexi, Percutaneous Approach (ICD-10-PCS; principal; 2020-01-24 14:00)
DX: M47.816 Spondylosis without myelopathy or radiculopathy, lumbar region (principal); M54.5 Low back pain
CPT/HCPCS: 76000-TC-FY; J1100

== ENCOUNTER 2020-03-13 04:24 | Day surgery (SDC) | payer OTHER ==
[2020-03-12 18:01] VITALS: BMI 32.3
[2020-03-13] MEDS ORDERED: LIDOCAINE HCL/PF 1% SDV 5ML VIAL ONE ×2 (11:51→11:53)
[2020-03-13] MEDS ORDERED: LIDOCAINE 1% P/F 10 MG/ML VIAL INF ONE ×2 (12:09)
[2020-03-13 12:42] VITALS: TEMP 97.8
[2020-03-13 13:38] VITALS: BP 114/67; PULSE 69
== END 2020-03-13 13:42 | disposition home or self-care (01) ==
LOC: JASU-SURG 04:24
PROVIDERS: ATTEND Pain Medicine Pain Medicine
PROC: 01HY3MZ Insertion of Neurostimulator Lead into Peripheral Nerve, Percutaneous Approach (ICD-10-PCS; principal; 2020-03-13 11:00)
DX: G89.4 Chronic pain syndrome (principal); M54.5 Low back pain
CPT/HCPCS: 64555; C1778

== ENCOUNTER 2020-06-01 17:52 | Emergency (ER) | payer OTHER ==
[2020-06-01 18:46] VITALS: BP 134/81; PULSE 78; TEMP 97.5; BMI 32.6
== END 2020-06-01 19:32 | disposition home or self-care (01) ==
LOC: JER 17:52
DX: U07.1 COVID-19 (principal)
CPT/HCPCS: 99283-25

== ENCOUNTER 2020-06-02 17:43 | Emergency (ER) | payer OTHER ==
[2020-06-02] MEDS ORDERED: BAMLANIVIMAB 700 MG in SODIUM CHLORIDE 250 ML IVPB ONE (18:20)
[2020-06-02 18:24] VITALS: TEMP 97.3; BMI 41.8
[2020-06-02 20:02] LABS: HEMATOCRIT 48.3 % (35.4-49); MCH 27.9 pg (25.7-33.7); MCHC 33.1 g/dl (32.0-35.9); MEAN CELL VOLUME 84.4 fl (80-96); MEAN PLT VOLUME 8.8 fl (7.5-11.1); PLATELET COUNT 173 K/MM3 (134-434); RBC 5.72 M/mm3 (4.00-5.60); RDW 15.7 % (11.9-15.9); WHITE BLOOD COUNT 6.6 K/mm3 (4.0-10.0)
[2020-06-02 20:13] LABS: POTASSIUM 4.4 mmol/L (3.5-5.1)
[2020-06-02 20:15] LABS: BLOOD UREA NITROGEN 16.9 mg/dL (7-18); CALCIUM 9.7 mg/dL (8.5-10.1)
[2020-06-02 20:19] LABS: CREATININE 1.2 mg/dL (0.55-1.3)
[2020-06-02 21:55] VITALS: BP 137/85; PULSE 89
== END 2020-06-02 21:54 | disposition home or self-care (01) ==
LOC: JER 17:43 → JCOVINFU 17:43
DX: U07.1 COVID-19 (principal)
CPT/HCPCS: 36415; 80048; 85027; 99284-25; M0239; Q0239

== ENCOUNTER 2021-08-18 04:36 | Day surgery (SDC) | payer OTHER ==
[2021-08-17 12:51] VITALS: BMI 32.6
[2021-08-18] MEDS ORDERED: BUPIVACAINE HCL/PF 0.5% (5MG/ML) 10 ML VIAL ONE ×2 (07:21→07:52)
[2021-08-18] MEDS ORDERED: LIDOCAINE 1%/EPI 1:100000 (20 ML MULTI DOSE VIAL) ONE (07:21)
[2021-08-18] MEDS ORDERED: MIDAZOLAM HCL 2 MG/2 ML SINGLE DOSE VIAL ONE (07:37)
[2021-08-18] MEDS ORDERED: DEXAMETHASONE SOD PHOSPHATE 4 MG/1 ML VIAL ONE (07:37)
[2021-08-18] MEDS ORDERED: PROPOFOL 20 ML ONE (07:37)
[2021-08-18] MEDS ORDERED: LIDOCAINE HCL/PF 2% SDV 5ML VIAL ONE (07:37)
[2021-08-18] MEDS ORDERED: ceFAZolin 2 GRAM PREMIX BAG IVPB ONE ×2 (07:53→08:26)
[2021-08-18 08:16] LABS: URINE APPEARANCE CLEAR; URINE BILIRUBIN NEGATIVE (NEGATIVE); URINE COLOR YELLOW; URINE GLUCOSE (UA) 3+ (NEGATIVE); URINE KETONE NEGATIVE (NEGATIVE); URINE LEUK ESTERASE NEGATIVE (NEGATIVE); URINE NITRITE NEGATIVE (NEGATIVE); URINE PROTEIN NEGATIVE (NEGATIVE); URINE UROBILINOGEN 0.2 mg/dL (0.2-1.0)
[2021-08-18] MEDS ORDERED: LIDOCAINE 1%/EPI 1:100000 (20 ML MULTI DOSE VIAL) IJ ONE ×2 (08:20)
[2021-08-18] MEDS ORDERED: BUPIVACAINE HCL/PF 0.5% (5MG/ML) 10 ML VIAL IJ ONE (08:20)
[2021-08-18] MEDS ORDERED: ceFAZolin SODIUM 1 GM VIAL ONE (08:26)
[2021-08-18] MEDS ORDERED: ONDANSETRON 4 MG/2 ML VIAL IVPUSH PRN (09:41)
[2021-08-18] MEDS ORDERED: oxyCODONE HCL 5 MG TABLET PO PRN ×2 (09:41)
[2021-08-18] MEDS ORDERED: LACTATED RINGERS SOLUTION 1,000 ML IV SCH (09:45)
[2021-08-18 13:25] VITALS: BP 97/55; PULSE 61; TEMP 96.9
== END 2021-08-18 12:50 | disposition home or self-care (01) ==
LOC: JASU-SURG 04:36
PROVIDERS: ATTEND Orthopaedic Surgery
PROC: 0SBC4ZZ Excision of Right Knee Joint, Percutaneous Endoscopic Approach (ICD-10-PCS; principal; 2021-08-18 08:00)
DX: M23.91 Unspecified internal derangement of right knee (principal); I10 Essential (primary) hypertension; E11.9 Type 2 diabetes mellitus without complications
CPT/HCPCS: 81003; 82962; 94760

== ENCOUNTER 2021-10-26 20:14 | Day surgery (SDC) | payer BC, OTHER ==
[2021-10-26 09:15] VITALS: BMI 32.6
[2021-10-26] MEDS: metFORMIN HCL 500 MG TABLET (FP) PO SCH (17:42)
[2021-10-26] MEDS: INSULIN SLIDING SCALE (NOVOLOG) 1 VIAL SQ SCH ×2 (17:43→21:37)
[~2021-10-26 20:14] MED LIST changes: +ACETAMINOPHEN 1000 MG/100 ML BAG IVPB ONE; -BUPIVACAINE 0.75% IN DEXTROSE/PF 2ML AMPULE NR ONE; +BUPIVACAINE HCL/PF 0.5% (5MG/ML) 10 ML VIAL ONE; -BUPIVACAINE HCL/PF 0.75% 10 ML VIAL NR ONE; +BUPIVACAINE LIPOSOME/PF (EXPAREL) 266 MG/20 ML VIAL ONE; +BUPIVICAINE 0.25%/MORPH PF/KETOROLAC - 51ML DISP.SYRINGE IA ONE; +CEFAZOLIN 2 GM in DEXTROSE 5%-WATER - 50 ML IVPB ONE; +CELECOXIB 200 MG CAPSULE PO ONE; -DEXAMETHASONE SOD PHOSPHATE 10 MG/1 ML VIAL IVPUSH ONE; +DEXAMETHASONE SOD PHOSPHATE 4 MG/1 ML VIAL ONE; +FENTANYL CITRATE/PF 50 MCG/ML VIAL ONE; -IOHEXOL 180 MG/1 ML ML IJ ONE; +LACTATED RINGERS SOLUTION 1,000 ML IV SCH; -LIDOCAINE HCL 1% PRESERVATIVE FREE - 30ML VIAL IJ ONE; -LIDOCAINE HCL/PF 2% SDV 5ML VIAL SQ ONE; +MIDAZOLAM HCL 2 MG/2 ML SINGLE DOSE VIAL ONE; +ONDANSETRON 4 MG/2 ML VIAL IVPUSH PRN; +ONDANSETRON 4 MG/2 ML VIAL ONE; +PROPOFOL 20 ML ONE; +SODIUM CHLORIDE 0.9% P/F 10 ML VIAL IJ ONE; +THROMBIN (BOVINE) 5,000 UNIT VIAL TP ONE; +TRANEXAMIC ACID 1000 MG/10 ML VIAL IVPUSH ONE; +TRANEXAMIC ACID 1000 MG/10 ML VIAL ONE; +VANCOMYCIN 1,000 MG VIAL (RESTRICTED TO ID ONLY) ONE; +ceFAZolin SODIUM 1 GM VIAL ONE; +oxyCODONE HCL 5 MG TABLET PO PRN
[2021-10-26] MEDS ORDERED: DEXTROSE 5%-WATER 100 ML IVPB ONE (20:31)
[2021-10-26] MEDS ORDERED: CEFAZOLIN SODIUM 2 GM VIAL ONE (20:32)
[2021-10-26] MEDS: CEFAZOLIN SODIUM 2 GM in DEXTROSE 5%-WATER 100 ML IVPB SCH (20:39)
[2021-10-26] MEDS: metoPROLOL SUCCINATE 25 MG TAB.SR.24H (FP) PO SCH (21:35)
[2021-10-26] MEDS ORDERED: DULoxetine HCL 20 MG CAPSULE.DR PO SCH (22:00)
[2021-10-26] MEDS ORDERED: ALPRAZolam 1 MG TABLET PO SCH (22:00)
[2021-10-26] MEDS ORDERED: DOCUSATE SODIUM 100 MG CAPSULE (FP) PO SCH (22:00)
[2021-10-26] MEDS ORDERED: traZODone HCL 100 MG TABLET (FP) PO SCH (22:00)
[2021-10-26] MEDS ORDERED: NORTRIPTYLINE HCL 25 MG CAPSULE PO SCH (22:00)
[2021-10-26] MEDS ORDERED: SENNOSIDES 8.6MG TABLET (FP) PO SCH (22:00)
[2021-10-26] MEDS ORDERED: MELATONIN 5 MG TABLETS PO SCH (22:00)
[2021-10-27] MEDS: oxyCODONE HCL 5 MG TABLET PO PRN ×2 (01:12→09:24)
[2021-10-27] MEDS ORDERED: DEXTROSE 5%-WATER 100 ML IVPB ONE (01:31)
[2021-10-27] MEDS ORDERED: CEFAZOLIN SODIUM 2 GM VIAL ONE (01:31)
[2021-10-27] MEDS: CEFAZOLIN SODIUM 2 GM in DEXTROSE 5%-WATER 100 ML IVPB SCH (03:05)
[2021-10-27] MEDS: INSULIN SLIDING SCALE (NOVOLOG) 1 VIAL SQ SCH ×2 (06:25→11:06)
[2021-10-27] MEDS: metFORMIN HCL 500 MG TABLET (FP) PO SCH (06:26)
[2021-10-27] MEDS ORDERED: LEVOTHYROXINE NA 75 MCG TABLET (FP) PO SCH (07:00)
[2021-10-27] MEDS ORDERED: ACETAMINOPHEN 500 MG TABLET (FP) PO PRN (08:18)
[2021-10-27] MEDS ORDERED: TAMSULOSIN HCL 0.4 MG CAP PO SCH (08:30)
[2021-10-27 09:21] VITALS: BP 107/73; PULSE 65; TEMP 97.9
[2021-10-27] MEDS: metoPROLOL SUCCINATE 25 MG TAB.SR.24H (FP) PO SCH (09:23)
[2021-10-27] MEDS ORDERED: PANTOPRAZOLE 40 MG TABLET PO SCH (10:00)
[2021-10-27] MEDS ORDERED: PATIENT'S OWN MEDICATION (NON-FORMULARY) (Empagliflozin 25 MG Tablet) PO SCH ×2 (10:00)
[2021-10-27] MEDS ORDERED: DULoxetine HCL 30 MG CAPSULE.DR PO SCH ×3 (10:00)
[2021-10-27] MEDS ORDERED: TICAGRELOR 90 MG TABLET PO SCH (10:00)
[2021-10-27] MEDS ORDERED: ASPIRIN 81 MG CHEWABLE TABLETS PO SCH (10:00)
[2021-10-27] MEDS ORDERED: MULTIVITAMINS (DAILY MVI) TABLET (FP) PO SCH (10:00)
[2021-10-27] MEDS ORDERED: FENOFIBRIC ACID 135 MG CAP PO SCH (10:00)
[2021-10-27] MEDS ORDERED: FENOFIBRATE MICRONIZED 200 MG PO SCH (10:00)
[2021-10-27] MEDS ORDERED: LOSARTAN POTASSIUM 25 MG TABLET PO SCH (10:00)
[2021-10-27] MEDS ORDERED: [UNRECOGNIZED DRUG - OTHER] PO SCH (10:00)
== END 2021-10-27 13:11 | disposition home or self-care (01) ==
LOC: FM/S 20:14 → FASUSAT 20:14 → FM/S 20:55 → FASUSAT 20:55
PROVIDERS: ATTEND Orthopaedic Surgery
PROC: 8E0YXBZ Computer Assisted Procedure of Lower Extremity (ICD-10-PCS; 2021-10-26)
PROC: 8E0Y0CZ Robotic Assisted Procedure of Lower Extremity, Open Approach (ICD-10-PCS; 2021-10-26)
PROC: 0SRC0L9 Replacement of Right Knee Joint with Medial Unicondylar Synthetic Substitute, Cemented, Open Approach (ICD-10-PCS; principal; 2021-10-26 12:04)
DX: M17.11 Unilateral primary osteoarthritis, right knee (principal)
CPT/HCPCS: 20985; 27446; C1776; S2900; 73560-TC-RT-FY; 82962; 94760; 97010-GP; 97116-GP; 97162-GP

== ENCOUNTER 2023-07-03 13:25 | Emergency (ER) | payer BC, OTHER ==
[2023-07-03 14:16] VITALS: BMI 33.4
[2023-07-03] MEDS ORDERED: morphine SULFATE 4 MG/ML VIAL ONE ×2 (15:34→20:56)
[2023-07-03] MEDS: morphine CARPU-JECT 2 MG/1 ML DISP.SYRIN IVPUSH ONE ×3 (15:41→23:27)
[2023-07-03 15:54] LABS: BASO % 0.7 % (0-2.0); EOS % 3.1 % (0-4.5); HEMATOCRIT 44.1 % (35.4-49); HEMOGLOBIN 14.9 GM/dL (11.7-16.9); LYMPH % 15.1 % (8-40); MCH 28.6 pg (25.7-33.7); MCHC 33.6 g/dl (32.0-35.9); MEAN CELL VOLUME 85.1 fl (80-96); MEAN PLT VOLUME 8.2 fl (7.5-11.1); MONO % 8.4 % (3.8-10.2); NEUT % 72.7 % (42.8-82.8); PLATELET COUNT 193 10^3/uL (134-434); RBC 5.19 M/mm3 (4.00-5.60); RDW 15.5 % (11.9-15.9)
[2023-07-03 16:04] LABS: INR 1.14 (0.83-1.09); PROTHROMBIN TIME (PATIENT) 13.2 SEC (9.7-13.0)
[2023-07-03 16:07] LABS: ACTIVATED PTT 31.2 SECONDS (25.2-36.5)
[2023-07-03 16:17] LABS: POTASSIUM 4.8 mmol/L (3.5-5.1)
[2023-07-03 16:20] LABS: BLOOD UREA NITROGEN 24.1 mg/dL (7-18); CALCIUM 9.5 mg/dL (8.5-10.1)
[2023-07-03 16:21] LABS: ALBUMIN 3.7 g/dl (3.4-5.0)
[2023-07-03 16:24] LABS: CREATININE 1.4 mg/dL (0.55-1.3)
[2023-07-03 16:25] LABS: BILIRUBIN,TOTAL 0.5 mg/dL (0.2-1); TOT PROT 6.9 g/dl (6.4-8.2)
[2023-07-03] MEDS: SODIUM CHLORIDE 0.9% 500 ML INFUS.BAG IV ONE (19:04)
[2023-07-03] MEDS ORDERED: ONDANSETRON 4 MG/2 ML VIAL ONE (20:56)
[2023-07-03 21:01] VITALS: TEMP 97.4
[2023-07-03] MEDS: ONDANSETRON 4 MG/2 ML VIAL IVPUSH ONE (21:08)
[2023-07-03] MEDS ORDERED: ACETAMINOPHEN INJECTION 100 ML IVPB ONE (23:19)
[2023-07-03 23:27] VITALS: BP 121/86; PULSE 89; RESP 19
[2023-07-03] MEDS: ACETAMINOPHEN 1000 MG/100 ML BAG IVPB ONE (23:27)
== END 2023-07-04 00:09 | disposition short-term general hospital (02) ==
LOC: JER 13:25
PROC: 3E030NZ Introduction of Analgesics, Hypnotics, Sedatives into Peripheral Vein, Open Approach (ICD-10-PCS; principal; 2023-07-03)
PROC: 3E030NZ Introduction of Analgesics, Hypnotics, Sedatives into Peripheral Vein, Open Approach (ICD-10-PCS; 2023-07-03)
PROC: 3E030NZ Introduction of Analgesics, Hypnotics, Sedatives into Peripheral Vein, Open Approach (ICD-10-PCS; 2023-07-03)
PROC: 3E030NZ Introduction of Analgesics, Hypnotics, Sedatives into Peripheral Vein, Open Approach (ICD-10-PCS; 2023-07-03)
PROC: 3E030GC Introduction of Other Therapeutic Substance into Peripheral Vein, Open Approach (ICD-10-PCS; 2023-07-03)
DX: M54.50 Low back pain, unspecified (principal); M48.061 Spinal stenosis, lumbar region without neurogenic claudication; R29.6 Repeated falls; R26.2 Difficulty in walking, not elsewhere classified; Z20.822 Contact with and (suspected) exposure to COVID-19
CPT/HCPCS: 0241U-QW; 36415; 70450-TC; 71250-TC; 72125-TC; 72128-TC; 72131-TC; 72192-TC; 74176-TC; 80053; 85025; 85610; 85730; 86850; 86900; 86901; 93005; 93010; 96374; 96375; 99285-25; J0131